=== PATIENT | male | born 1965 | race Caucasian/White ===

== ENCOUNTER 2020-02-01 23:14 | Inpatient (IN) | payer OTHER ==
[2020-02-01] MEDS ORDERED: GI Cocktail Oral Solution 30 ML PO ONE (23:21)
[2020-02-02 00:14] LABS: CHLORIDE,CL 102 mmol/L (98-107); SODIUM,NA 140 mmol/L (136-145)
[2020-02-02] MEDS ORDERED: Ondansetron 4 MG/2 ML SDV IVPUSH PRN (00:33)
[2020-02-02] MEDS ORDERED: Morphine 2 MG/ML Syringe IVPUSH PRN (00:33)
[2020-02-02] MEDS ORDERED: Famotidine 20 MG/2 ML SDV IVPUSH ONE (00:36)
[2020-02-02] MEDS ORDERED: Pantoprazole 40 MG Vial IVPUSH ONE (00:36)
[2020-02-02] MEDS ORDERED: Ondansetron 4 MG/2 ML SDV IVPUSH ONE (00:39)
[2020-02-02] MEDS ORDERED: Morphine 2 MG/ML Syringe IVPUSH ONE (00:39)
[2020-02-02] MEDS ORDERED: Calcium Carbonate 750 MG Tab.Chew PO PRN (00:40)
[2020-02-02] MEDS ORDERED: Sucralfate 1 GM Tab PO ONE (00:40)
[2020-02-02] MEDS ORDERED: HYDROmorphone 1 MG/ML Syringe IM ONE (00:43)
[2020-02-02] MEDS ORDERED: Ondansetron 4 MG Tab.DIS PO ONE (00:44)
--- NOTE | 2020-02-02 00:49 | EDM.PDOC ---
ED HPI GENERAL MEDICAL PROBLEM - General Chief Complaint: Abdominal Pain Stated Complaint: Abd Pain Time Seen by Provider: 02/01/20 23:45 Source of Information: Reports: Patient History Limitations: Reports: No Limitations - History of Present Illness INITIAL COMMENTS - FREE TEXT/NARRATIVE: Patient comes in to ER with complaint of 7-8 hours of relatively constant epigastric pain. At times feels like it radiates towards back. Burping/ antacids briefly help with pain but do not last long. Decreased appetite but did eat some food throughout day. Last meal around 6-7pm. Had similar pain two days ago that lasted around 12 hours. History of hiatal hernia. Supposed to be scheduled for surgical procedure this summer to help with the hiatal hernia and reflux symptoms. On Protonix. Previously diagnosed with Fleming's Esophagus but that cleared up on last upper GI scope. No specific trigger known for these two episodes. No history of GI surgeries. Tried to make self vomit two days ago but did not help. Denies vomiting/nausea/bowel changes. No blood in stool. Burping more frequently. No recent other changes/illnesses that he notes. HEENT negative for headache/URI complaints/dizzy/vision changes Resp negative for SOB/cough/wheeze/acute changes CV negative for palpitations/chest wall discomfort/pain in chest area other than epigastric area as noted above. negative for burning/frequency/hematuria MS/Neuro negative for limb pain/weakness/other acute changes. Upper Epigastric Pain Score (Numeric/FACES): 6 - Related Data Allergies Allergy/AdvReac Type Severity Reaction Status Date / Time No Known Allergies Allergy Verified 06/16/18 02:12 Home Meds: Home Meds Pantoprazole Sodium [Protonix] 40 mg PO DAILY 06/16/18 [History] Calcium Carb/Magnesium Hydrox [Rolaids Chewable Tablet] 4 tab PO ASDIRECTED [History] Past Medical History HEENT History: Reports: Other (See Below) Other HEENT History: snoring (working with [employer]) Cardiovascular History: Reports: None, Other (See Below) (borderline elevated BPs in past) Respiratory History: Reports: None Gastrointestinal History: Reports: GERD, Hiatal Hernia Other Gastrointestinal History: Barrets Genitourinary History: Reports: None Musculoskeletal History: Reports: None Neurological History: Reports: Other (See Below) Other Neuro History: RLS Psychiatric History: Reports: None Endocrine/Metabolic History: Reports: None Hematologic History: Reports: None Immunologic History: Reports: None Oncologic (Cancer) History: Reports: None Dermatologic History: Reports: None - Infectious Disease History Infectious Disease History: Reports: Chicken Pox Social & Family History - Tobacco Use Smoking Status *Q: Former Smoker Years of Tobacco use: 10 Packs/Tins Daily: 0.5 Used Tobacco, but Quit: Yes Month/Year Tobacco Last Used: 10/1989 - Caffeine Use Caffeine Use: Reports: Coffee - Alcohol Use Alcohol Use History: Yes Alcohol Use Frequency: Socially - Recreational Drug Use Recreational Drug Use: No ED ROS GENERAL - Review of Systems Review Of Systems: Comprehensive ROS is negative, except as noted in HPI. ED EXAM, GENERAL - Physical Exam Exam: See Below Exam Limited By: No Limitations General Appearance: Alert, WD/WN, Moderate Distress Eye Exam: Bilateral Eye: EOMI, PERRL Ears: Hearing Grossly Normal Nose: No: Nasal Deformity, Nasal Swelling, Nasal Drainage Throat/Mouth: Normal Lips, Normal Voice, No Airway Compromise Head: Atraumatic, Normocephalic Neck: Normal Inspection, Supple, Non-Tender, Full Range of Motion Respiratory/Chest: No Respiratory Distress, Lungs Clear, Normal Breath Sounds, No Accessory Muscle Use, Chest Non-Tender Cardiovascular: Regular Rate, Rhythm, No Murmur GI/Abdominal: Soft, Tender (RUQ and epigastric area), Abnormal Bowel Sounds ( decreased throughout). No: Guarding, Rigid, Rebound (Male) Exam: Deferred Rectal (Males) Exam: Deferred Back Exam: Normal Inspection. No: CVA Tenderness (L), CVA Tenderness (R), Muscle Spasm, Paraspinal Tenderness, Vertebral Tenderness Extremities: Normal Inspection, Normal Range of Motion, Non-Tender, Normal Capillary Refill Neurological: Alert, Oriented, Normal Cognition, Normal Gait, Other (equal tone/ strength bilaterally) Psychiatric: Anxious Skin Exam: Warm, Dry, Intact, Normal Color Course - Vital Signs Last Recorded V/S: Last Vital Signs Temp 36.9 C 02/01/20 23:28 Pulse 83 02/01/20 23:28 Resp 12 02/01/20 23:28 BP 145/78 H 02/01/20 23:28 Pulse Ox 100 02/01/20 23:28 - Orders/Labs/Meds Orders: Medication Orders Calcium Carbonate/Glycine (Tums Extra Strength) 750 mg PO Q2HR PRN PRN Reason: Indigestion Famotidine (Pepcid) 20 mg IVPUSH ONETIME ONE Stop: 02/02/20 00:37 Hydromorphone HCl (Dilaudid) 1 mg IM ONETIME ONE Stop: 02/02/20 00:44 Sodium Chloride (Normal Saline) 1,000 mls @ 125 mls/hr IV ASDIRECTED MILES Morphine Sulfate (Morphine) 2 mg IVPUSH Q2H PRN PRN Reason: Pain (severe 7-10) Ondansetron HCl (Zofran) 4 mg IVPUSH Q6H PRN PRN Reason: Nausea/Vomiting Ondansetron HCl (Zofran Odt) 4 mg PO ONETIME ONE Stop: 02/02/20 00:45 Pantoprazole Sodium (Protonix Iv) 80 mg IVPUSH .BOLUS ONE Stop: 02/02/20 00:37 Sodium Chloride (Saline Flush) 10 ml FLUSH ASDIRECTED PRN PRN Reason: Keep Vein Open Sucralfate (Carafate) 1 gm PO ONETIME ONE Stop: 02/02/20 00:41 Labs: Laboratory Tests 02/01/20 02/01/20 02/01/20 Range/Units 23:22 23:22 23:22 WBC 9.7 (4.0-10.2) K/uL RBC 4.92 (4.33-5.41) M/uL Hgb 14.5 (13.1-16.8) g/dL Hct 43.5 (39.0-49.0) % MCV 88.4 (84.0-98.0) fL MCH 29.5 (28.2-33.3) pg MCHC 33.3 (31.7-36.0) g/dL RDW 13.2 (11.2-14.1) % Plt Count 286 (150-350) K/uL Neut % (Auto) 63.5 (45.0-80.0) % Lymph % (Auto) 25.4 (10.0-50.0) % Mccormick % (Auto) 9.1 (2.0-14.0) % Eos % (Auto) 1.7 (0.0-5.0) % Baso % (Auto) 0.3 (0.0-2.0) % Neut # (Auto) 6.17 (1.40-7.00) K/uL Lymph # (Auto) 2.47 (0.50-3.50) K/uL Mccormick # (Auto) 0.88 (0.00-1.00) K/uL Eos # (Auto) 0.17 (0.00-0.50) K/uL Baso # (Auto) 0.03 (0.00-0.20) K/uL Sodium 140 (136-145) mmol/L Potassium 3.9 (3.5-5.1) mmol/L Chloride 102 (98-107) mmol/L Carbon Dioxide 29.7 (21.0-32.0) mmol/L BUN 11 (7-18) mg/dL Creatinine 0.92 (0.51-1.17) mg/dL Est Cr Clr Drug Dosing 88.80 mL/min Estimated GFR (MDRD) > 60 mL/min Glucose 103 (74-106) mg/dL Lactic Acid 1.1 (0.4-2.0) mmol/L Calcium 8.6 (8.5-10.1) mg/dL Total Bilirubin 0.2 (0.2-1.0) mg/dL AST 19 (15-37) U/L ALT 40 (12-78) U/L Alkaline Phosphatase 77 (46-116) IU/L Creatine Kinase (26-308) U/L Creatine Kinase Index (0.0-2.5) % CK-MB (CK-2) (0.00-3.60) ng/mL Troponin I (0.000-0.056) ng/mL Total Protein 7.8 (6.4-8.2) g/dL Albumin 3.9 (3.4-5.0) g/dL Amylase 51 (25-115) U/L Lipase 150 (73-393) U/L Specimen Type Urine Color Urine Appearance Urine pH (5.0-9.0) Ur Specific [place] (1.005-1.030) Urine Protein (NEGATIVE) mg/dL Urine Glucose (UA) (NEGATIVE) mg/dL Urine Ketones (NEGATIVE) mg/dL Urine Occult Blood (NEGATIVE) Urine Nitrite (NEGATIVE) Urine Bilirubin (NEGATIVE) Urine Urobilinogen (0.2-1.0) E.U./dL Ur Leukocyte Esterase (NEGATIVE) Urine RBC /HPF Urine WBC /HPF Ur Epithelial Cells /LPF Amorphous Sediment (0/HPF) /HPF Urine Bacteria (NONE TO FEW) /HPF 02/01/20 02/01/20 Range/Units 23:25 23:33 WBC (4.0-10.2) K/uL RBC (4.33-5.41) M/uL Hgb (13.1-16.8) g/dL Hct (39.0-49.0) % MCV (84.0-98.0) fL MCH (28.2-33.3) pg MCHC (31.7-36.0) g/dL RDW (11.2-14.1) % Plt Count (150-350) K/uL Neut % (Auto) (45.0-80.0) % Lymph % (Auto) (10.0-50.0) % Mccormick % (Auto) (2.0-14.0) % Eos % (Auto) (0.0-5.0) % Baso % (Auto) (0.0-2.0) % Neut # (Auto) (1.40-7.00) K/uL Lymph # (Auto) (0.50-3.50) K/uL M[place]ormick # (Auto) (0.00-1.00) K/uL Eos # (Auto) (0.00-0.50) K/uL Baso # (Auto) (0.00-0.20) K/uL Sodium (136-145) mmol/L Potassium (3.5-5.1) mmol/L Chloride (98-107) mmol/L Carbon Dioxide (21.0-32.0) mmol/L BUN (7-18) mg/dL Creatinine (0.51-1.17) mg/dL Est Cr Clr Drug Dosing mL/min Estimated GFR (MDRD) mL/min Glucose (74-106) mg/dL Lactic Acid (0.4-2.0) mmol/L Calcium (8.5-10.1) mg/dL Total Bilirubin (0.2-1.0) mg/dL AST (15-37) U/L ALT (12-78) U/L Alkaline Phosphatase (46-116) IU/L Creatine Kinase 61 (26-308) U/L Creatine Kinase Index 0.7 (0.0-2.5) % CK-MB (CK-2) 0.40 (0.00-3.60) ng/mL Troponin I 0.000 (0.000-0.056) ng/mL Total Protein (6.4-8.2) g/dL Albumin (3.4-5.0) g/dL Amylase (25-115) U/L Lipase (73-393) U/L Specimen Type Urinvoid Urine Color Yellow Urine Appearance Cloudy Urine pH 8.5 (5.0-9.0) Ur Specific [place] 1.020 (1.005-1.030) Urine Protein Negative (NEGATIVE) mg/dL Urine Glucose (UA) Negative (NEGATIVE) mg/dL Urine Ketones Negative (NEGATIVE) mg/dL Urine Occult Blood Negative (NEGATIVE) Urine Nitrite Negative (NEGATIVE) Urine Bilirubin Negative (NEGATIVE) Urine Urobilinogen 0.2 (0.2-1.0) E.U./dL Ur Leukocyte Esterase Negative (NEGATIVE) Urine RBC Not seen /HPF Urine WBC Not seen /HPF Ur Epithelial Cells Not seen /LPF Amorphous Sediment Many H (0/HPF) /HPF Urine Bacteria Few (NONE TO FEW) /HPF Meds: Medications Generic Name Dose Route Start Last Admin Trade Name Freq PRN Reason Stop Dose Admin Calcium Carbonate/Glycine 750 mg 02/02/20 00:40 Tums Extra Strength PO Q2HR PRN Indigestion Famotidine 20 mg 02/02/20 00:36 Pepcid IVPUSH 02/02/20 00:37 ONETIME ONE Hydromorphone HCl 1 mg 02/02/20 00:43 Dilaudid IM 02/02/20 00:44 ONETIME ONE Sodium Chloride 1,000 mls @ 125 mls/hr 02/02/20 00:45 Normal Saline IV ASDIRECTED [facility] Morphine Sulfate 2 mg 02/02/20 00:33 Morphine IVPUSH Q2H PRN Pain (severe 7-10) Ondansetron HCl 4 mg 02/02/20 00:33 Zofran IVPUSH Q6H PRN Nausea/Vomiting Ondansetron HCl 4 mg 02/02/20 00:44 Zofran Odt PO 02/02/20 00:45 ONETIME ONE Pantoprazole Sodium 80 mg 02/02/20 00:36 Protonix Iv IVPUSH 02/02/20 00:37 .BOLUS ONE Sodium Chloride 10 ml 02/02/20 00:33 Saline Flush FLUSH ASDIRECTED PRN Keep Vein Open Sucralfate 1 gm 02/02/20 00:40 Carafate PO 02/02/20 00:41 ONETIME ONE Discontinued Medications Generic Name Dose Route Start Last Admin Trade Name Adriana PRN Reason Stop Dose Admin Al Hydroxide/Mg Hydroxide 30 ml 02/01/20 23:21 02/01/20 23:27 Gi Cocktail PO 02/01/20 23:22 30 ml ONETIME ONE Administration Morphine Sulfate 4 mg 02/02/20 00:39 Morphine IVPUSH 02/02/20 00:40 ONETIME ONE Ondansetron HCl 4 mg 02/02/20 00:39 Zofran IVPUSH 02/02/20 00:40 ONETIME ONE - Re-Assessments/Exams Free Text/Narrative Re-Assessment/Exam: 02/02/20 00:56 Some improvement noted with GI cocktail but pain returned. CBC/Chem/Troponin/Amylase/Lipase/UA/lactic acid normal. Given patient's GI history/presentation/exam suspect GI cause most likely for complaint. Will admit observation and give IV fluids/pain medication/Protonix/Pepcid and get abdominal CT to try to pinpoint cause of pain. Departure - Departure Time of Disposition: 12:30 Disposition: Refer to Observation Condition: Good Clinical Impression: Epigastric pain, Hiatal hernia - Discharge Information *PRESCRIPTION DRUG MONITORING PROGRAM REVIEWED*: Not Applicable *COPY OF PRESCRIPTION DRUG MONITORING REPORT IN PATIENT SUSSY: Not Applicable Sepsis Event Note - Evaluation Sepsis Screening Result: No Definite Risk - Focused Exam Vital Signs: Vital Signs Temp Pulse Resp BP Pulse Ox 02/01/20 23:28 36.9 C 83 12 145/78 H 100 Date Exam was Performed: 02/02/20 Time Exam was Performed: 00:49 - Problem List & Annotations (1) Epigastric pain SNOMED Code(s): 03626089 Code(s): R10.13 - EPIGASTRIC PAIN Status: Acute Priority: High Current Visit: Yes Onset Date: 01/31/20 Annotation/Comment:: Differential includes hiatal hernia/ulcer/spasm. Given that discomfort extends towards RUQ cannot exclude gallbladder contribution. Will admit to observation for pain control and further workup/IV fluids. May need to consider referral to [facility] to be seen by GI if no improvement is obtained or if findings on CT indicate need for transfer. (2) Hiatal hernia SNOMED Code(s): 63199136 Code(s): K44.9 - DIAPHRAGMATIC HERNIA WITHOUT OBSTRUCTION OR GANGRENE Status: Chronic Priority: High Current Visit: Yes Annotation/Comment:: History of Hiatal Hernia with planned surgical procedure this summer to help alleviate symptoms. - Problem List Review Problem List Initiated/Reviewed/Updated: Yes - Assessment/Plan Admission H&P: Please use this note as an admission H&P Assessment:: Stable and suitable for general supervision Plan: as above
[2020-02-02] MEDS ORDERED: Iopamidol 612 MG/ML 100 ML Bottle IVPUSH ONE (01:20)
[2020-02-02] MEDS: Sodium Chloride 0.9% 1,000 ML IV SCH ×4 (01:44→23:55)
[2020-02-02 11:12] LABS: CHLORIDE,CL 105 mmol/L (98-107); SODIUM,NA 140 mmol/L (136-145)
--- NOTE | 2020-02-02 12:02 | PCM.PN ---
- General Info Date of Service: 02/02/20 Admission Dx/Problem (Free Text): Epigastric/RUQ pain Subjective Update: Pain improved with morphine. Continues to persist however with no otherwise significant changes. No appetite. Functional Status: Reports: Pain Controlled (11/20 at this time with MS), Ambulating, Urinating. Denies: New Symptoms - Review of Systems General: Reports: Appetite (low). Denies: Fever, Weakness, Fatigue, Malaise, Chills, Night Sweats HEENT: Reports: No Symptoms Pulmonary: Reports: No Symptoms Cardiovascular: Denies: Chest Pain, Palpitations, Dyspnea on Exertion, Orthopnea , Edema, Lightheadedness Gastrointestinal: Reports: Abdominal Pain, Decreased Appetite, Nausea, Other ( pain at times radiates to patient's back). Denies: Constipation, Diarrhea, Difficulty Swallowing, Flatus, Melena, Vomiting Genitourinary: Reports: No Symptoms Musculoskeletal: Reports: No Symptoms Skin: Reports: No Symptoms Neurological: Reports: No Symptoms Psychiatric: Reports: No Symptoms - Patient Data Vitals - Most Recent: Last Vital Signs Temp 36.6 C 02/02/20 06:19 Pulse 95 02/02/20 06:19 Resp 19 02/02/20 06:19 BP 128/77 02/02/20 06:19 Pulse Ox 99 02/02/20 06:19 Weight - Most Recent: 78.471 kg I&O - Last 24 Hours: Intake & Output 02/01/20 02/02/20 02/02/20 22:59 06:59 14:59 Output Total 500 Balance -500 Lab Results Last 24 Hours: Laboratory Results - last 24 hr 02/01/20 02/01/20 02/01/20 Range/Units 23:22 23:22 23:22 WBC 9.7 (4.0-10.2) K/uL RBC 4.92 (4.33-5.41) M/uL Hgb 14.5 (13.1-16.8) g/dL Hct 43.5 (39.0-49.0) % MCV 88.4 (84.0-98.0) fL MCH 29.5 (28.2-33.3) pg MCHC 33.3 (31.7-36.0) g/dL RDW 13.2 (11.2-14.1) % Plt Count 286 (150-350) K/uL Neut % (Auto) 63.5 (45.0-80.0) % Lymph % (Auto) 25.4 (10.0-50.0) % [place] % (Auto) 9.1 (2.0-14.0) % Eos % (Auto) 1.7 (0.0-5.0) % Baso % (Auto) 0.3 (0.0-2.0) % Neut # (Auto) 6.17 (1.40-7.00) K/uL Lymph # (Auto) 2.47 (0.50-3.50) K/uL [place] # (Auto) 0.88 (0.00-1.00) K/uL Eos # (Auto) 0.17 (0.00-0.50) K/uL Baso # (Auto) 0.03 (0.00-0.20) K/uL Sodium 140 (136-145) mmol/L Potassium 3.9 (3.5-5.1) mmol/L Chloride 102 (98-107) mmol/L Carbon Dioxide 29.7 (21.0-32.0) mmol/L BUN 11 (7-18) mg/dL Creatinine 0.92 (0.51-1.17) mg/dL Est Cr Clr Drug Dosing 88.80 mL/min Estimated GFR (MDRD) > 60 mL/min Glucose 103 (74-106) mg/dL Lactic Acid 1.1 (0.4-2.0) mmol/L Calcium 8.6 (8.5-10.1) mg/dL Total Bilirubin 0.2 (0.2-1.0) mg/dL AST 19 (15-37) U/L ALT 40 (12-78) U/L Alkaline Phosphatase 77 (46-116) IU/L Creatine Kinase (26-308) U/L Creatine Kinase Index (0.0-2.5) % CK-MB (CK-2) (0.00-3.60) ng/mL Troponin I (0.000-0.056) ng/mL Total Protein 7.8 (6.4-8.2) g/dL Albumin 3.9 (3.4-5.0) g/dL Amylase 51 (25-115) U/L Lipase 150 (73-393) U/L Specimen Type Urine Color Urine Appearance Urine pH (5.0-9.0) Ur Specific [place] (1.005-1.030) Urine Protein (NEGATIVE) mg/dL Urine Glucose (UA) (NEGATIVE) mg/dL Urine Ketones (NEGATIVE) mg/dL Urine Occult Blood (NEGATIVE) Urine Nitrite (NEGATIVE) Urine Bilirubin (NEGATIVE) Urine Urobilinogen (0.2-1.0) E.U./dL Ur Leukocyte Esterase (NEGATIVE) Urine RBC /HPF Urine WBC /HPF Ur Epithelial Cells /LPF Amorphous Sediment (0/HPF) /HPF Urine Bacteria (NONE TO FEW) /HPF 02/01/20 02/01/20 02/02/20 Range/Units 23:25 23:33 10:50 WBC 9.7 (4.0-10.2) K/uL RBC 4.43 (4.33-5.41) M/uL Hgb 13.1 (13.1-16.8) g/dL Hct 39.4 (39.0-49.0) % MCV 88.9 (84.0-98.0) fL MCH 29.6 (28.2-33.3) pg MCHC 33.2 (31.7-36.0) g/dL RDW 13.2 (11.2-14.1) % Plt Count 259 (150-350) K/uL Neut % (Auto) 77.4 (45.0-80.0) % Lymph % (Auto) 14.2 (10.0-50.0) % [place] % (Auto) 8.0 (2.0-14.0) % Eos % (Auto) 0.2 (0.0-5.0) % Baso % (Auto) 0.2 (0.0-2.0) % Neut # (Auto) 7.49 H (1.40-7.00) K/uL Lymph # (Auto) 1.38 (0.50-3.50) K/uL Caroline # (Auto) 0.78 (0.00-1.00) K/uL Eos # (Auto) 0.02 (0.00-0.50) K/uL Baso # (Auto) 0.02 (0.00-0.20) K/uL Sodium (136-145) mmol/L Potassium (3.5-5.1) mmol/L Chloride (98-107) mmol/L Carbon Dioxide (21.0-32.0) mmol/L BUN (7-18) mg/dL Creatinine (0.51-1.17) mg/dL Est Cr Clr Drug Dosing mL/min Estimated GFR (MDRD) mL/min Glucose (74-106) mg/dL Lactic Acid (0.4-2.0) mmol/L Calcium (8.5-10.1) mg/dL Total Bilirubin (0.2-1.0) mg/dL AST (15-37) U/L ALT (12-78) U/L Alkaline Phosphatase (46-116) IU/L Creatine Kinase 61 (26-308) U/L Creatine Kinase Index 0.7 (0.0-2.5) % CK-MB (CK-2) 0.40 (0.00-3.60) ng/mL Troponin I 0.000 (0.000-0.056) ng/mL Total Protein (6.4-8.2) g/dL Albumin (3.4-5.0) g/dL Amylase (25-115) U/L Lipase (73-393) U/L Specimen Type Urinvoid Urine Color Yellow Urine Appearance Cloudy Urine pH 8.5 (5.0-9.0) Ur Specific [place] 1.020 (1.005-1.030) Urine Protein Negative (NEGATIVE) mg/dL Urine Glucose (UA) Negative (NEGATIVE) mg/dL Urine Ketones Negative (NEGATIVE) mg/dL Urine Occult Blood Negative (NEGATIVE) Urine Nitrite Negative (NEGATIVE) Urine Bilirubin Negative (NEGATIVE) Urine Urobilinogen 0.2 (0.2-1.0) E.U./dL Ur Leukocyte Esterase Negative (NEGATIVE) Urine RBC Not seen /HPF Urine WBC Not seen /HPF Ur Epithelial Cells Not seen /LPF Amorphous Sediment Many H (0/HPF) /HPF Urine Bacteria Few (NONE TO FEW) /HPF 02/02/20 02/02/20 Range/Units 10:50 10:50 WBC (4.0-10.2) K/uL RBC (4.33-5.41) M/uL Hgb (13.1-16.8) g/dL Hct (39.0-49.0) % MCV (84.0-98.0) fL MCH (28.2-33.3) pg MCHC (31.7-36.0) g/dL RDW (11.2-14.1) % Plt Count (150-350) K/uL Neut % (Auto) (45.0-80.0) % Lymph % (Auto) (10.0-50.0) % [place] % (Auto) (2.0-14.0) % Eos % (Auto) (0.0-5.0) % Baso % (Auto) (0.0-2.0) % Neut # (Auto) (1.40-7.00) K/uL Lymph # (Auto) (0.50-3.50) K/uL [place] # (Auto) (0.00-1.00) K/uL Eos # (Auto) (0.00-0.50) K/uL Baso # (Auto) (0.00-0.20) K/uL Sodium 140 (136-145) mmol/L Potassium 4.1 (3.5-5.1) mmol/L Chloride 105 (98-107) mmol/L Carbon Dioxide 24.7 (21.0-32.0) mmol/L BUN 11 (7-18) mg/dL Creatinine 0.87 (0.51-1.17) mg/dL Est Cr Clr Drug Dosing 93.91 mL/min Estimated GFR (MDRD) > 60 mL/min Glucose 114 H (74-106) mg/dL Lactic Acid 1.5 (0.4-2.0) mmol/L Calcium 8.1 L (8.5-10.1) mg/dL Total Bilirubin 0.5 (0.2-1.0) mg/dL AST 15 (15-37) U/L ALT 33 (12-78) U/L Alkaline Phosphatase 63 (46-116) IU/L Creatine Kinase (26-308) U/L Creatine Kinase Index (0.0-2.5) % CK-MB (CK-2) (0.00-3.60) ng/mL Troponin I (0.000-0.056) ng/mL Total Protein 6.8 (6.4-8.2) g/dL Albumin 3.5 (3.4-5.0) g/dL Amylase 43 (25-115) U/L Lipase 97 (73-393) U/L Specimen Type Urine Color Urine Appearance Urine pH (5.0-9.0) Ur Specific [place] (1.005-1.030) Urine Protein (NEGATIVE) mg/dL Urine Glucose (UA) (NEGATIVE) mg/dL Urine Ketones (NEGATIVE) mg/dL Urine Occult Blood (NEGATIVE) Urine Nitrite (NEGATIVE) Urine Bilirubin (NEGATIVE) Urine Urobilinogen (0.2-1.0) E.U./dL Ur Leukocyte Esterase (NEGATIVE) Urine RBC /HPF Urine WBC /HPF Ur Epithelial Cells /LPF Amorphous Sediment (0/HPF) /HPF Urine Bacteria (NONE TO FEW) /HPF Med Orders - Current: Current Medications Calcium Carbonate/Glycine (Tums Extra Strength) 750 mg PO Q2HR PRN PRN Reason: Indigestion Sodium Chloride (Normal Saline) 1,000 mls @ 125 mls/hr IV ASDIRECTED MILES Last Admin: 02/02/20 10:00 Dose: 125 mls/hr Morphine Sulfate (Morphine) 2 mg IVPUSH Q2H PRN PRN Reason: Pain (severe 7-10) Ondansetron HCl (Zofran) 4 mg IVPUSH Q6H PRN PRN Reason: Nausea/Vomiting Last Admin: 02/02/20 06:10 Dose: 4 mg Sodium Chloride (Saline Flush) 10 ml FLUSH ASDIRECTED PRN PRN Reason: Keep Vein Open Discontinued Medications Al Hydroxide/Mg Hydroxide (Gi Cocktail) 30 ml PO ONETIME ONE Stop: 02/01/20 23:22 Last Admin: 02/01/20 23:27 Dose: 30 ml Famotidine (Pepcid) 20 mg IVPUSH ONETIME ONE Stop: 02/02/20 00:37 Last Admin: 02/02/20 01:40 Dose: 20 mg Hydromorphone HCl (Dilaudid) 1 mg IM ONETIME ONE Stop: 02/02/20 00:44 Last Admin: 02/02/20 01:04 Dose: 1 mg Iopamidol (Isovue-300 (61%)) 100 ml IVPUSH ONETIME ONE Stop: 02/02/20 01:21 Last Admin: 02/02/20 02:03 Dose: 100 ml Morphine Sulfate (Morphine) 4 mg IVPUSH ONETIME ONE Stop: 02/02/20 00:40 Last Admin: 02/02/20 02:36 Dose: Not Given Ondansetron HCl (Zofran) 4 mg IVPUSH ONETIME ONE Stop: 02/02/20 00:40 Last Admin: 02/02/20 02:37 Dose: Not Given Ondansetron HCl (Zofran Odt) 4 mg PO ONETIME ONE Stop: 02/02/20 00:45 Last Admin: 02/02/20 01:03 Dose: 4 mg Pantoprazole Sodium (Protonix Iv) 80 mg IVPUSH .BOLUS ONE Stop: 02/02/20 00:37 Last Admin: 02/02/20 01:40 Dose: 80 mg Sucralfate (Carafate) 1 gm PO ONETIME ONE Stop: 02/02/20 00:41 Last Admin: 02/02/20 01:03 Dose: 1 gm - Exam General: Alert, Oriented, Cooperative, Mild Distress HEENT: Pupils Equal, Pupils Reactive, EOMI, Mucous Membr. Moist/[place] Neck: Supple Lungs: Clear to Auscultation, Normal Respiratory Effort Cardiovascular: Regular Rate, Regular Rhythm GI/Abdominal Exam: No Distention, Guarding, Tender (epigastric and RUQ), Abnormal Bowel Sounds (diminished throughout). No: Rigid, Rebound (Male) Exam: Deferred Extremities: Normal Inspection, Normal Capillary Refill Skin: Warm, Dry Neurological: No New Focal Deficit Psy/Mental Status: Alert, Normal Affect, Normal Mood Sepsis Event Note - Evaluation Sepsis Screening Result: No Definite Risk - Focused Exam Vital Signs: Vital Signs Temp Pulse Resp BP BP Pulse Ox 02/02/20 06:19 36.6 C 95 19 128/77 99 02/02/20 00:34 99 02/02/20 00:33 37.2 C 78 14 124/72 99 Date Exam was Performed: 02/02/20 Time Exam was Performed: 11:56 - Problem List & Annotations (1) Epigastric pain SNOMED Code(s): 64918618 Code(s): R10.13 - EPIGASTRIC PAIN Status: Acute Priority: High Current Visit: Yes Onset Date: 01/31/20 Annotation/Comment:: CT of abdomen shows distended gallbladder with multiple stones. Pain has not improved overall since admission, only temporary improvement with MS. Normal LFTs. Normal WBC. Cholecystectomy discussed with patient and (Surgeon). Patient agreeable with having cholecystectomy. (2) Hiatal hernia SNOMED Code(s): 75159166 Code(s): K44.9 - DIAPHRAGMATIC HERNIA WITHOUT OBSTRUCTION OR GANGRENE Status: Chronic Priority: High Current Visit: Yes Annotation/Comment:: History of Hiatal Hernia with planned surgical procedure this summer to help alleviate symptoms. - Problem List Review Problem List Initiated/Reviewed/Updated: Yes - My Orders Last 24 Hours: My Active Orders 02/02/20 00:33 Patient Status [ADT] Routine Oxygen Therapy [RC] PRN Up ad Dian [RC] , Vital Signs [RC] Q4HR Morphine 2 mg IVPUSH Q2H PRN Ondansetron [Zofran] 4 mg IVPUSH Q6H PRN Sodium Chloride 0.9% [Saline Flush] 10 ml FLUSH ASDIRECTED PRN Saline Lock Insert [OM.PC] Routine Resuscitation Status Routine 02/02/20 00:34 Pulse Oximetry [RC] PRN 02/02/20 00:36 Abdomen Pelvis w Cont [CT] Routine 02/02/20 00:40 OCCULT BLOOD DIAGNOSTIC [OP] Routine Calcium Carbonate [Tums Extra Strength] 750 mg PO Q2HR PRN 02/02/20 00:41 H PYLORI STOOL ANTIGEN [MREF] Routine 02/02/20 00:45 Sodium Chloride 0.9% [Normal Saline] 1,000 ml IV ASDIRECTED 02/02/20 02:42 Abdomen Comp [US] Routine - Assessment Assessment:: as above - Plan Plan:: Hospital working with patient's insurance to get authorization for cholecystectomy. Once approved, procedure will be able to be performed at our facility. Anticipate discharge of patient home either later this evening or tomorrow depending on clinical course/recovery from procedure.
[2020-02-02] MEDS ORDERED: Meperidine PF 25 MG/ML SDV IVPUSH ONE (12:09)
[2020-02-02] MEDS ORDERED: Lactated Ringers 1,000 ML IV SCH (12:15)
[2020-02-02] MEDS ORDERED: Scopolamine 1.5 MG Transdermal Patch TRDERM ONE (12:43)
[2020-02-02] MEDS ORDERED: Scopolamine 1.5 MG Transdermal Patch ONE (12:43)
[2020-02-02] MEDS ORDERED: Midazolam 1 MG/ML 2 ML SDV ONE (12:49)
[2020-02-02] MEDS ORDERED: fentaNYL 250 MCG/5 ML SDV ONE (12:49)
[2020-02-02] MEDS ORDERED: Propofol 200 MG/20 ML SDV ONE (12:49)
--- NOTE | 2020-02-02 13:32 | PCM.PN ---
- General Info Date of Service: 02/02/20 - Review of Systems Systems Review Comment:: 54-year-old male admitted to the hospital last night for upper abdominal pain. He had been experiencing several episodes of this over the last few days. Patient was evaluated with CT scan which documented cholelithiasis with dilated gallbladder. Patient continues to have upper abdominal pain and tenderness. I have recommended urgent cholecystectomy with the patient's continued symptoms. Liver function tests are normal. Abdominal exam shows his abdomen is soft but there is tenderness to palpation in the upper abdomen. I do not feel any abdominal masses. His only previous abdominal surgery was appendectomy. His medical history is reviewed and no contraindications to proceeding with surgery today are identified. I have discussed the proposed cholecystectomy with the patient. We have carefully reviewed the indications options for treatment. I discussed the expected course and postop instructions. I also carefully reviewed with him risks such as but not limited to bleeding,infection, and organ injury. We also discussed possible need to convert to a laparotomy. Patient's questions are answered. He agrees to proceed. - Patient Data Vitals - Most Recent: Last Vital Signs Temp 97.9 F 02/02/20 06:19 Pulse 95 02/02/20 06:19 Resp 19 02/02/20 06:19 BP 128/77 02/02/20 06:19 Pulse Ox 99 02/02/20 06:19 Weight - Most Recent: 78.471 kg I&O - Last 24 Hours: Intake & Output 02/01/20 02/02/20 02/02/20 22:59 06:59 14:59 Output Total 500 Balance -500 Lab Results Last 24 Hours: Laboratory Results - last 24 hr 02/01/20 02/01/20 02/01/20 Range/Units 23:22 23:22 23:22 WBC 9.7 (4.0-10.2) K/uL RBC 4.92 (4.33-5.41) M/uL Hgb 14.5 (13.1-16.8) g/dL Hct 43.5 (39.0-49.0) % MCV 88.4 (84.0-98.0) fL MCH 29.5 (28.2-33.3) pg MCHC 33.3 (31.7-36.0) g/dL RDW 13.2 (11.2-14.1) % Plt Count 286 (150-350) K/uL Neut % (Auto) 63.5 (45.0-80.0) % Lymph % (Auto) 25.4 (10.0-50.0) % Craven % (Auto) 9.1 (2.0-14.0) % Eos % (Auto) 1.7 (0.0-5.0) % Baso % (Auto) 0.3 (0.0-2.0) % Neut # (Auto) 6.17 (1.40-7.00) K/uL Lymph # (Auto) 2.47 (0.50-3.50) K/uL Craven # (Auto) 0.88 (0.00-1.00) K/uL Eos # (Auto) 0.17 (0.00-0.50) K/uL Baso # (Auto) 0.03 (0.00-0.20) K/uL Sodium 140 (136-145) mmol/L Potassium 3.9 (3.5-5.1) mmol/L Chloride 102 (98-107) mmol/L Carbon Dioxide 29.7 (21.0-32.0) mmol/L BUN 11 (7-18) mg/dL Creatinine 0.92 (0.51-1.17) mg/dL Est Cr Clr Drug Dosing 88.80 mL/min Estimated GFR (MDRD) > 60 mL/min Glucose 103 (74-106) mg/dL Lactic Acid 1.1 (0.4-2.0) mmol/L Calcium 8.6 (8.5-10.1) mg/dL Total Bilirubin 0.2 (0.2-1.0) mg/dL AST 19 (15-37) U/L ALT 40 (12-78) U/L Alkaline Phosphatase 77 (46-116) IU/L Creatine Kinase (26-308) U/L Creatine Kinase Index (0.0-2.5) % CK-MB (CK-2) (0.00-3.60) ng/mL Troponin I (0.000-0.056) ng/mL Total Protein 7.8 (6.4-8.2) g/dL Albumin 3.9 (3.4-5.0) g/dL Amylase 51 (25-115) U/L Lipase 150 (73-393) U/L Specimen Type Urine Color Urine Appearance Urine pH (5.0-9.0) Ur Specific [place] (1.005-1.030) Urine Protein (NEGATIVE) mg/dL Urine Glucose (UA) (NEGATIVE) mg/dL Urine Ketones (NEGATIVE) mg/dL Urine Occult Blood (NEGATIVE) Urine Nitrite (NEGATIVE) Urine Bilirubin (NEGATIVE) Urine Urobilinogen (0.2-1.0) E.U./dL Ur Leukocyte Esterase (NEGATIVE) Urine RBC /HPF Urine WBC /HPF Ur Epithelial Cells /LPF Amorphous Sediment (0/HPF) /HPF Urine Bacteria (NONE TO FEW) /HPF 02/01/20 02/01/20 02/02/20 Range/Units 23:25 23:33 10:50 WBC 9.7 (4.0-10.2) K/uL RBC 4.43 (4.33-5.41) M/uL Hgb 13.1 (13.1-16.8) g/dL Hct 39.4 (39.0-49.0) % MCV 88.9 (84.0-98.0) fL MCH 29.6 (28.2-33.3) pg MCHC 33.2 (31.7-36.0) g/dL RDW 13.2 (11.2-14.1) % Plt Count 259 (150-350) K/uL Neut % (Auto) 77.4 (45.0-80.0) % Lymph % (Auto) 14.2 (10.0-50.0) % Craven % (Auto) 8.0 (2.0-14.0) % Eos % (Auto) 0.2 (0.0-5.0) % Baso % (Auto) 0.2 (0.0-2.0) % Neut # (Auto) 7.49 H (1.40-7.00) K/uL Lymph # (Auto) 1.38 (0.50-3.50) K/uL Craven # (Auto) 0.78 (0.00-1.00) K/uL Eos # (Auto) 0.02 (0.00-0.50) K/uL Baso # (Auto) 0.02 (0.00-0.20) K/uL Sodium (136-145) mmol/L Potassium (3.5-5.1) mmol/L Chloride (98-107) mmol/L Carbon Dioxide (21.0-32.0) mmol/L BUN (7-18) mg/dL Creatinine (0.51-1.17) mg/dL Est Cr Clr Drug Dosing mL/min Estimated GFR (MDRD) mL/min Glucose (74-106) mg/dL Lactic Acid (0.4-2.0) mmol/L Calcium (8.5-10.1) mg/dL Total Bilirubin (0.2-1.0) mg/dL AST (15-37) U/L ALT (12-78) U/L Alkaline Phosphatase (46-116) IU/L Creatine Kinase 61 (26-308) U/L Creatine Kinase Index 0.7 (0.0-2.5) % CK-MB (CK-2) 0.40 (0.00-3.60) ng/mL Troponin I 0.000 (0.000-0.056) ng/mL Total Protein (6.4-8.2) g/dL Albumin (3.4-5.0) g/dL Amylase (25-115) U/L Lipase (73-393) U/L Specimen Type Urinvoid Urine Color Yellow Urine Appearance Cloudy Urine pH 8.5 (5.0-9.0) Ur Specific [place] 1.020 (1.005-1.030) Urine Protein Negative (NEGATIVE) mg/dL Urine Glucose (UA) Negative (NEGATIVE) mg/dL Urine Ketones Negative (NEGATIVE) mg/dL Urine Occult Blood Negative (NEGATIVE) Urine Nitrite Negative (NEGATIVE) Urine Bilirubin Negative (NEGATIVE) Urine Urobilinogen 0.2 (0.2-1.0) E.U./dL Ur Leukocyte Esterase Negative (NEGATIVE) Urine RBC Not seen /HPF Urine WBC Not seen /HPF Ur Epithelial Cells Not seen /LPF Amorphous Sediment Many H (0/HPF) /HPF Urine Bacteria Few (NONE TO FEW) /HPF 02/02/20 02/02/20 Range/Units 10:50 10:50 WBC (4.0-10.2) K/uL RBC (4.33-5.41) M/uL Hgb (13.1-16.8) g/dL Hct (39.0-49.0) % MCV (84.0-98.0) fL MCH (28.2-33.3) pg MCHC (31.7-36.0) g/dL RDW (11.2-14.1) % Plt Count (150-350) K/uL Neut % (Auto) (45.0-80.0) % Lymph % (Auto) (10.0-50.0) % [place]ven % (Auto) (2.0-14.0) % Eos % (Auto) (0.0-5.0) % Baso % (Auto) (0.0-2.0) % Neut # (Auto) (1.40-7.00) K/uL Lymph # (Auto) (0.50-3.50) K/uL [place] # (Auto) (0.00-1.00) K/uL Eos # (Auto) (0.00-0.50) K/uL Baso # (Auto) (0.00-0.20) K/uL Sodium 140 (136-145) mmol/L Potassium 4.1 (3.5-5.1) mmol/L Chloride 105 (98-107) mmol/L Carbon Dioxide 24.7 (21.0-32.0) mmol/L BUN 11 (7-18) mg/dL Creatinine 0.87 (0.51-1.17) mg/dL Est Cr Clr Drug Dosing 93.91 mL/min Estimated GFR (MDRD) > 60 mL/min Glucose 114 H (74-106) mg/dL Lactic Acid 1.5 (0.4-2.0) mmol/L Calcium 8.1 L (8.5-10.1) mg/dL Total Bilirubin 0.5 (0.2-1.0) mg/dL AST 15 (15-37) U/L ALT 33 (12-78) U/L Alkaline Phosphatase 63 (46-116) IU/L Creatine Kinase (26-308) U/L Creatine Kinase Index (0.0-2.5) % CK-MB (CK-2) (0.00-3.60) ng/mL Troponin I (0.000-0.056) ng/mL Total Protein 6.8 (6.4-8.2) g/dL Albumin 3.5 (3.4-5.0) g/dL Amylase 43 (25-115) U/L Lipase 97 (73-393) U/L Specimen Type Urine Color Urine Appearance Urine pH (5.0-9.0) Ur Specific [place] (1.005-1.030) Urine Protein (NEGATIVE) mg/dL Urine Glucose (UA) (NEGATIVE) mg/dL Urine Ketones (NEGATIVE) mg/dL Urine Occult Blood (NEGATIVE) Urine Nitrite (NEGATIVE) Urine Bilirubin (NEGATIVE) Urine Urobilinogen (0.2-1.0) E.U./dL Ur Leukocyte Esterase (NEGATIVE) Urine RBC /HPF Urine WBC /HPF Ur Epithelial Cells /LPF Amorphous Sediment (0/HPF) /HPF Urine Bacteria (NONE TO FEW) /HPF Med Orders - Current: Current Medications Calcium Carbonate/Glycine (Tums Extra Strength) 750 mg PO Q2HR PRN PRN Reason: Indigestion Sodium Chloride (Normal Saline) 1,000 mls @ 125 mls/hr IV ASDIRECTED [facility] Last Admin: 02/02/20 10:00 Dose: 125 mls/hr Lactated Ringer's (Ringers, Lactated) 1,000 mls @ 75 mls/hr IV ASDIRECTED [facility] Last Admin: 02/02/20 12:35 Dose: 75 mls/hr Morphine Sulfate (Morphine) 2 mg IVPUSH Q2H PRN PRN Reason: Pain (severe 7-10) Ondansetron HCl (Zofran) 4 mg IVPUSH Q6H PRN PRN Reason: Nausea/Vomiting Last Admin: 02/02/20 06:10 Dose: 4 mg Sodium Chloride (Saline Flush) 10 ml FLUSH ASDIRECTED PRN PRN Reason: Keep Vein Open Discontinued Medications Al Hydroxide/Mg Hydroxide (Gi Cocktail) 30 ml PO ONETIME ONE Stop: 02/01/20 23:22 Last Admin: 02/01/20 23:27 Dose: 30 ml Famotidine (Pepcid) 20 mg IVPUSH ONETIME ONE Stop: 02/02/20 00:37 Last Admin: 02/02/20 01:40 Dose: 20 mg Fentanyl (Sublimaze) Confirm Administered Dose 250 mcg .ROUTE .STK-MED ONE Stop: 02/02/20 12:50 Hydromorphone HCl (Dilaudid) 1 mg IM ONETIME ONE Stop: 02/02/20 00:44 Last Admin: 02/02/20 01:04 Dose: 1 mg Iopamidol (Isovue-300 (61%)) 100 ml IVPUSH ONETIME ONE Stop: 02/02/20 01:21 Last Admin: 02/02/20 02:03 Dose: 100 ml Meperidine HCl (Demerol) 25 mg IVPUSH ONETIME ONE Stop: 02/02/20 12:10 Last Admin: 02/02/20 12:35 Dose: 25 mg Midazolam HCl (Versed 1 Mg/Ml) Confirm Administered Dose 2 mg .ROUTE .STK-MED ONE Stop: 02/02/20 12:50 Morphine Sulfate (Morphine) 4 mg IVPUSH ONETIME ONE Stop: 02/02/20 00:40 Last Admin: 02/02/20 02:36 Dose: Not Given Ondansetron HCl (Zofran) 4 mg IVPUSH ONETIME ONE Stop: 02/02/20 00:40 Last Admin: 02/02/20 02:37 Dose: Not Given Ondansetron HCl (Zofran Odt) 4 mg PO ONETIME ONE Stop: 02/02/20 00:45 Last Admin: 02/02/20 01:03 Dose: 4 mg Pantoprazole Sodium (Protonix Iv) 80 mg IVPUSH .BOLUS ONE Stop: 02/02/20 00:37 Last Admin: 02/02/20 01:40 Dose: 80 mg Propofol (Diprivan 20 Ml) Confirm Administered Dose 200 mg .ROUTE .STK-MED ONE Stop: 02/02/20 12:50 Scopolamine (Transderm-Scop) 1.5 mg TRDERM Q72H ONE Stop: 02/02/20 12:44 Last Admin: 02/02/20 12:55 Dose: 1.5 mg Scopolamine (Transderm-Scop) Confirm Administered Dose 1.5 mg .ROUTE .STK-MED ONE Stop: 02/02/20 12:44 Sucralfate (Carafate) 1 gm PO ONETIME ONE Stop: 02/02/20 00:41 Last Admin: 02/02/20 01:03 Dose: 1 gm Sepsis Event Note - Evaluation Sepsis Screening Result: No Definite Risk - Focused Exam Vital Signs: Vital Signs Temp Pulse Resp BP Pulse Ox 02/02/20 06:19 97.9 F 95 19 128/77 99 Date Exam was Performed: 02/02/20 Time Exam was Performed: 13:28 - Problem List Review Problem List Initiated/Reviewed/Updated: Yes - Assessment Assessment:: cholelithiasis with acute cholecystitis - Plan Plan:: laparoscopic cholecystectomy
[2020-02-02] MEDS ORDERED: ceFAZolin 1 GM Vial IV ONE (13:40)
[2020-02-02] MEDS ORDERED: Bupivacaine 0.25%/EPINEPHrine 1:200,000 30 ML SDV INJECT ONE (13:50)
[2020-02-02] MEDS ORDERED: fentaNYL 100 MCG/2 ML SDV ONE (16:15)
[2020-02-02] MEDS ORDERED: Bacitracin Oint 1 GM U/D Packet TOP ONE (16:20)
--- NOTE | 2020-02-02 16:37 | PCM.OPNOTE ---
- General Post-Op/Procedure Note Date of Surgery/Procedure: 02/02/20 Operative Procedure(s): Laparoscopic Cholecystectomy Findings: Acutely inflamed gallbladder with multiple stones and Hydrops Pre Op Diagnosis: Acute Cholecystitis with cholelithiasis Post-Op Diagnosis: Same Anesthesia Technique: General ET Tube Primary Surgeon: Mustapha Joyce Pathology: Gallbladder with stones EBL in mLs: 150 Complications: None Condition: Good Free Text/Narrative:: Intake & Output 02/02/20 02/02/20 02/02/20 06:59 14:59 22:59 Output Total 900 Balance -900
[2020-02-02] MEDS ORDERED: Ketorolac 30 MG/ML SDV IVPUSH ONE (17:27)
[2020-02-02] MEDS: Sodium Chloride 0.9% 10 ML Syringe FLUSH PRN (17:41)
[2020-02-02] MEDS: Piperacillin/Tazobactam 3.375 GM in Sodium Chloride 0.9% 100 ML IV SCH ×2 (19:20→23:53)
--- NOTE | 2020-02-02 23:06 | OR ---
Date of Procedure: 02/02/2020 PREOPERATIVE DIAGNOSIS: Acute cholecystitis with cholelithiasis. POSTOPERATIVE DIAGNOSIS: Acute cholecystitis with cholelithiasis. OPERATION PERFORMED: Laparoscopic cholecystectomy. INDICATIONS FOR SURGERY: This 54-year-old male was hospitalized with upper abdominal pain. He had several episodes over the past several days and came in with a severe unrelenting episode. Workup has identified cholelithiasis with a dilated gallbladder which is felt to be the source of his pain, and he comes for cholecystectomy. FINDINGS: The gallbladder was severely acutely inflamed with dense adherence of the gallbladder to the gallbladder bed, especially in its lower aspect. It contained multiple large and small stones. The adjacent liver and other organs as viewed laparoscopically appeared normal. DESCRIPTION OF PROCEDURE: The patient was taken to the operating room. He was given general endotracheal anesthesia and the abdomen was sterilely prepped and draped. An infraumbilical stab wound incision was made. Through this, a Veress needle was inserted and pneumoperitoneum via this needle to a pressure of 15 mmHg was achieved with carbon dioxide. The Veress needle was replaced with a 12 mm trocar into which the 0-degree 10 mm laparoscopic camera was inserted. Under direct visualization, 5 mm trocars were placed in the subxiphoid midline in 2 areas of the right abdomen. All trocar sites were infiltrated with Marcaine prior to incision. Intraabdominal inspection was carried out and attention was turned to the gallbladder. The gallbladder was markedly dilated and tense, so an aspirating needle was inserted and the hydrops of bile aspirated from the gallbladder which decompressed it and then allowed it to be manipulated. It was secured with grasping forceps and retracted superiorly and anteriorly as much as possible. This was difficult because of the intense inflammation and scarring, especially in the lower aspect of the gallbladder. Careful dissection was carried out, gradually clearing the peritoneum and thick inflamed tissue, and with persistent careful manipulation, the cystic artery was able to be identified and isolated and it was then clipped and divided. The additional dissection identified what was felt to be the cystic duct. Dissection was somewhat difficult around the lower portion of the gallbladder, and eventually the lower portion of the gallbladder was entered exposing the large stone. This did help to identify the anatomy, and with careful additional persistent dissection, the cystic duct identity was able to be confirmed including its junction with the gallbladder. It was then doubly clipped and divided near the gallbladder. Additional dissection identified another branch of the cystic artery which was doubly clipped and divided, and the gallbladder was then slowly and carefully dissected away from the undersurface of the gallbladder using the hook cautery device. During this dissection, a large stone escaped from the lumen of the gallbladder. This stone was removed during the course of the operation. It had to be fragmented in order to accomplish this. The formed stone fragments were also removed leaving minimal stone fragments intra- abdominally. Dissection of the gallbladder was continued until it was completely freed from the liver bed. It was then placed into an Endo retrieval bag and it was extracted through the umbilical trocar site. Because of the thick gallbladder and multiple large and small stones, the skin and fascial opening had to be extended just slightly and the gallbladder and stones broken up, but eventually it was able to be removed without any stone spillage. Re- inspection of the gallbladder bed was carried out and copious irrigation of the operative region was performed. Careful examination showed no sign of complication. A piece of Surgicel was placed in the lower aspect of the gallbladder bed to assure good hemostasis, and the trocars were removed under direct visualization and the pneumoperitoneum was evacuated. The fascia of the umbilical trocar site was closed with interrupted 0 Vicryl sutures. The wounds were carefully irrigated with Betadine and saline solution. Skin incision was approximated with interrupted 4-0 Vicryl in subcuticular stitch. Benzoin and Steri-Strips were applied followed by antibiotic ointment and sterile dressings. The patient was then awakened, extubated, and taken from the operating room in satisfactory condition. ESTIMATED BLOOD LOSS: 150 mL. COMPLICATIONS: None. PROGNOSIS: Good. QUINTIN Joyce MD /[id number]
[2020-02-03] MEDS: Piperacillin/Tazobactam 3.375 GM in Sodium Chloride 0.9% 100 ML IV SCH (05:04)
[2020-02-03 08:27] LABS: CHLORIDE,CL 107 mmol/L (98-107); SODIUM,NA 140 mmol/L (136-145)
[2020-02-03] MEDS: cefTRIAXone 1 GM in Sodium Chloride 0.9% 100 ML IV SCH ×2 (10:46→22:05)
[2020-02-03] MEDS: Sodium Chloride 0.9% 10 ML Syringe FLUSH PRN ×3 (10:46→11:30)
--- NOTE | 2020-02-03 11:03 | PCM.PN ---
- General Info Date of Service: 02/03/20 Admission Dx/Problem (Free Text): Cholecystitis Functional Status: Reports: Pain Controlled, Tolerating Diet, Ambulating, Urinating, Incentive Spirometry. Denies: New Symptoms Pain Score: 2 - Review of Systems General: Reports: Fever. Denies: Weakness, Fatigue, Malaise, Chills, Night Sweats, Appetite (Improving) HEENT: Denies: Dysphasia, Ear Pain, Eye Pain, Headaches, Post Nasal Drip, Sinus Congestion, Sore Throat, Rhinitis, Visual Changes Pulmonary: Reports: Pleuritic Chest Pain. Denies: Shortness of Breath, Cough, Sputum, Hemoptysis, Wheezing Cardiovascular: Reports: Lightheadedness. Denies: Chest Pain, Palpitations, Dyspnea on Exertion, Orthopnea, Edema Gastrointestinal: Reports: Abdominal Pain, Constipation, Other (No bowel movement since surgery). Denies: Decreased Appetite, Diarrhea, Difficulty Swallowing, Flatus, Hematochezia, Melena, Nausea, Vomiting Genitourinary: Reports: No Symptoms. Denies: Dysuria, Frequency, Burning, Pain , Urgency, Incontinence, Hematuria, Retention, Flank Pain Musculoskeletal: Reports: No Symptoms. Denies: Neck Pain, Shoulder Pain, Arm Pain, Back Pain, Leg Pain Skin: Reports: Bruising (Normal postop). Denies: Jaundice, Pallor, Diaphoresis , Rash Neurological: Reports: Dizziness. Denies: Confusion, Headache, Numbness, Paresthesia, Seizure, Tingling, Weakness Psychiatric: Reports: No Symptoms. Denies: Confusion, Depression, Anxiety, Agitation, Cravings, Hallucinations - Patient Data Vitals - Most Recent: Last Vital Signs Temp 36.8 C 02/03/20 08:00 Pulse 79 02/03/20 08:00 Resp 20 02/03/20 08:00 BP 99/56 L 02/03/20 08:00 Pulse Ox 96 02/03/20 08:00 Vital Signs - 24 hr 02/02/20 02/02/20 02/02/20 13:20 16:45 16:50 Temperature [ Oral] Temperature [ 36.7 C 37.3 C Temporal] Pulse, 78 94 Peripheral [ Left Pulse Oximetry] Pulse, Peripheral [ Right Pulse Oximetry] Respiratory 19 18 Rate Blood Pressure 128/77 [Left Upper Arm ] Blood Pressure 124/72 86/48 L [Right Upper Arm] O2 Sat by Pulse 99 94 L Oximetry O2 Sat by Pulse 92 L Oximetry [Room Air] 02/02/20 02/02/20 02/02/20 17:04 17:06 17:07 Temperature [ Oral] Temperature [ 37.4 C 37.4 C Temporal] Pulse, 79 75 Peripheral [ Left Pulse Oximetry] Pulse, Peripheral [ Right Pulse Oximetry] Respiratory 18 20 Rate Blood Pressure [Left Upper Arm ] Blood Pressure 100/55 L 104/69 [Right Upper Arm] O2 Sat by Pulse 91 L 91 L Oximetry O2 Sat by Pulse Oximetry [Room Air] 02/02/20 02/02/20 02/02/20 17:20 17:46 18:12 Temperature [ Oral] Temperature [ 37.0 C 37.4 C Temporal] Pulse, 81 81 Peripheral [ Left Pulse Oximetry] Pulse, Peripheral [ Right Pulse Oximetry] Respiratory 20 18 Rate Blood Pressure 102/51 L [Left Upper Arm ] Blood Pressure 96/54 L [Right Upper Arm] O2 Sat by Pulse 100 97 Oximetry O2 Sat by Pulse 95 Oximetry [Room Air] 02/02/20 02/02/20 02/02/20 18:45 19:49 23:56 Temperature [ 37.3 C Oral] Temperature [ 37.3 C 36.8 C Temporal] Pulse, 84 Peripheral [ Left Pulse Oximetry] Pulse, 78 74 Peripheral [ Right Pulse Oximetry] Respiratory 14 18 16 Rate Blood Pressure 101/55 L 91/55 L [Left Upper Arm ] Blood Pressure 91/43 L [Right Upper Arm] O2 Sat by Pulse 95 97 95 Oximetry O2 Sat by Pulse Oximetry [Room Air] 02/03/20 02/03/20 03:27 08:00 Temperature [ 37.6 C 36.8 C Oral] Temperature [ Temporal] Pulse, 81 Peripheral [ Left Pulse Oximetry] Pulse, 79 Peripheral [ Right Pulse Oximetry] Respiratory 16 20 Rate Blood Pressure 103/49 L 99/56 L [Left Upper Arm ] Blood Pressure [Right Upper Arm] O2 Sat by Pulse 95 96 Oximetry O2 Sat by Pulse Oximetry [Room Air] Weight - Most Recent: 78.471 kg I&O - Last 24 Hours: Intake & Output 02/02/20 02/03/20 02/03/20 22:59 06:59 14:59 Intake Total 1750 1834 360 Output Total 250 350 Balance 1500 1484 360 Imaging Impressions - Last 24 Hours: Intraoperative tester operator showed normal sinus rhythm in the 80s to 100s with no ectopy or arrhythmia. Lab Results Last 24 Hours: Laboratory Results - last 24 hr 02/02/20 02/02/20 02/02/20 Range/Units 10:50 10:50 10:50 WBC 9.7 (4.0-10.2) K/uL RBC 4.43 (4.33-5.41) M/uL Hgb 13.1 (13.1-16.8) g/dL Hct 39.4 (39.0-49.0) % MCV 88.9 (84.0-98.0) fL MCH 29.6 (28.2-33.3) pg MCHC 33.2 (31.7-36.0) g/dL RDW 13.2 (11.2-14.1) % Plt Count 259 (150-350) K/uL Neut % (Auto) 77.4 (45.0-80.0) % Lymph % (Auto) 14.2 (10.0-50.0) % [place] % (Auto) 8.0 (2.0-14.0) % Eos % (Auto) 0.2 (0.0-5.0) % Baso % (Auto) 0.2 (0.0-2.0) % Neut # (Auto) 7.49 H (1.40-7.00) K/uL Lymph # (Auto) 1.38 (0.50-3.50) K/uL [place] # (Auto) 0.78 (0.00-1.00) K/uL Eos # (Auto) 0.02 (0.00-0.50) K/uL Baso # (Auto) 0.02 (0.00-0.20) K/uL Sodium 140 (136-145) mmol/L Potassium 4.1 (3.5-5.1) mmol/L Chloride 105 (98-107) mmol/L Carbon Dioxide 24.7 (21.0-32.0) mmol/L BUN 11 (7-18) mg/dL Creatinine 0.87 (0.51-1.17) mg/dL Est Cr Clr Drug Dosing 93.91 mL/min Estimated GFR (MDRD) > 60 mL/min Glucose 114 H (74-106) mg/dL Lactic Acid 1.5 (0.4-2.0) mmol/L Calcium 8.1 L (8.5-10.1) mg/dL Total Bilirubin 0.5 (0.2-1.0) mg/dL AST 15 (15-37) U/L ALT 33 (12-78) U/L Alkaline Phosphatase 63 (46-116) IU/L Total Protein 6.8 (6.4-8.2) g/dL Albumin 3.5 (3.4-5.0) g/dL Amylase 43 (25-115) U/L Lipase 97 (73-393) U/L 02/03/20 02/03/20 Range/Units 07:35 07:35 WBC 10.4 H (4.0-10.2) K/uL RBC 4.04 L (4.33-5.41) M/uL Hgb 12.0 L (13.1-16.8) g/dL Hct 36.6 L (39.0-49.0) % MCV 90.6 (84.0-98.0) fL MCH 29.7 (28.2-33.3) pg MCHC 32.8 (31.7-36.0) g/dL RDW 13.6 (11.2-14.1) % Plt Count 238 (150-350) K/uL Neut % (Auto) 74.7 (45.0-80.0) % Lymph % (Auto) 15.4 (10.0-50.0) % [place] % (Auto) 9.8 (2.0-14.0) % Eos % (Auto) 0.0 (0.0-5.0) % Baso % (Auto) 0.1 (0.0-2.0) % Neut # (Auto) 7.79 H (1.40-7.00) K/uL Lymph # (Auto) 1.60 (0.50-3.50) K/uL [place] # (Auto) 1.02 H (0.00-1.00) K/uL Eos # (Auto) 0.00 (0.00-0.50) K/uL Baso # (Auto) 0.01 (0.00-0.20) K/uL Sodium 140 (136-145) mmol/L Potassium 3.8 (3.5-5.1) mmol/L Chloride 107 (98-107) mmol/L Carbon Dioxide 25.7 (21.0-32.0) mmol/L BUN 12 (7-18) mg/dL Creatinine 1.07 (0.51-1.17) mg/dL Est Cr Clr Drug Dosing 76.36 mL/min Estimated GFR (MDRD) > 60 mL/min Glucose 104 (74-106) mg/dL Lactic Acid (0.4-2.0) mmol/L Calcium 7.3 L (8.5-10.1) mg/dL Total Bilirubin 0.8 (0.2-1.0) mg/dL AST 30 (15-37) U/L ALT 44 (12-78) U/L Alkaline Phosphatase 47 (46-116) IU/L Total Protein 6.0 L (6.4-8.2) g/dL Albumin 3.0 L (3.4-5.0) g/dL Amylase (25-115) U/L Lipase (73-393) U/L Mani Results Last 24 Hours: None Med Orders - Current: Current Medications Acetaminophen (Tylenol) 650 mg PO Q4H PRN PRN Reason: Pain (Mild 1-3)/fever Calcium Carbonate/Glycine (Tums Extra Strength) 750 mg PO Q2HR PRN PRN Reason: Indigestion Sodium Chloride (Normal Saline) 1,000 mls @ 125 mls/hr IV ASDIRECTED [facility] Last Admin: 02/02/20 23:55 Dose: 125 mls/hr Ceftriaxone Sodium 1 gm/ (Sodium Chloride) 100 mls @ 200 mls/hr IV Q12H [facility] Last Admin: 02/03/20 10:46 Dose: 200 mls/hr Metronidazole 500 mg/ Premix 100 mls @ 100 mls/hr IV Q8H [facility] Morphine Sulfate (Morphine) 2 mg IVPUSH Q2H PRN PRN Reason: Pain (severe 7-10) Ondansetron HCl (Zofran) 4 mg IVPUSH Q6H PRN PRN Reason: Nausea/Vomiting Last Admin: 02/02/20 06:10 Dose: 4 mg Sodium Chloride (Saline Flush) 10 ml FLUSH ASDIRECTED PRN PRN Reason: Keep Vein Open Last Admin: 02/03/20 10:52 Dose: 10 ml Tramadol HCl (Ultram) 50 mg PO Q6H PRN PRN Reason: Pain (moderate 4-6) Discontinued Medications Al Hydroxide/Mg Hydroxide (Gi Cocktail) 30 ml PO ONETIME ONE Stop: 02/01/20 23:22 Last Admin: 02/01/20 23:27 Dose: 30 ml Bupivacaine HCl/Epinephrine Bitart (Marcaine 0.25%/Epinephrine 1:200,000) 30 ml INJECT .STK-MED ONE Stop: 02/02/20 13:51 Last Admin: 02/02/20 13:50 Dose: 30 ml Cefazolin Sodium (Ancef) 2 gm IV .STK-MED ONE Stop: 02/02/20 13:41 Last Admin: 02/02/20 13:40 Dose: 2 gm Famotidine (Pepcid) 20 mg IVPUSH ONETIME ONE Stop: 02/02/20 00:37 Last Admin: 02/02/20 01:40 Dose: 20 mg Fentanyl (Sublimaze) Confirm Administered Dose 250 mcg .ROUTE .STK-MED ONE Stop: 02/02/20 12:50 Last Admin: 02/02/20 18:56 Dose: Not Given Fentanyl (Sublimaze) Confirm Administered Dose 100 mcg .ROUTE .STK-MED ONE Stop: 02/02/20 16:16 Last Admin: 02/02/20 18:56 Dose: Not Given Hydromorphone HCl (Dilaudid) 1 mg IM ONETIME ONE Stop: 02/02/20 00:44 Last Admin: 02/02/20 01:04 Dose: 1 mg Lactated Ringer's (Ringers, Lactated) 1,000 mls @ 75 mls/hr IV ASDIRECTED [facility] Last Admin: 02/02/20 12:35 Dose: 75 mls/hr Piperacillin Sod/Tazobactam (Sod 3.375 gm/ Sodium Chloride) 100 mls @ 200 mls/ hr IV Q6H [facility] Stop: 02/03/20 05:29 Last Admin: 02/03/20 05:04 Dose: 200 mls/hr Iopamidol (Isovue-300 (61%)) 100 ml IVPUSH ONETIME ONE Stop: 02/02/20 01:21 Last Admin: 02/02/20 02:03 Dose: 100 ml Ketorolac Tromethamine (Toradol) 30 mg IVPUSH ONETIME ONE Stop: 02/02/20 17:28 Last Admin: 02/02/20 17:35 Dose: 30 mg Meperidine HCl (Demerol) 25 mg IVPUSH ONETIME ONE Stop: 02/02/20 12:10 Last Admin: 02/02/20 12:35 Dose: 25 mg Midazolam HCl (Versed 1 Mg/Ml) Confirm Administered Dose 2 mg .ROUTE .STK-MED ONE Stop: 02/02/20 12:50 Last Admin: 02/02/20 18:56 Dose: Not Given Morphine Sulfate (Morphine) 4 mg IVPUSH ONETIME ONE Stop: 02/02/20 00:40 Last Admin: 02/02/20 02:36 Dose: Not Given Ondansetron HCl (Zofran) 4 mg IVPUSH ONETIME ONE Stop: 02/02/20 00:40 Last Admin: 02/02/20 02:37 Dose: Not Given Ondansetron HCl (Zofran Odt) 4 mg PO ONETIME ONE Stop: 02/02/20 00:45 Last Admin: 02/02/20 01:03 Dose: 4 mg Pantoprazole Sodium (Protonix Iv) 80 mg IVPUSH .BOLUS ONE Stop: 02/02/20 00:37 Last Admin: 02/02/20 01:40 Dose: 80 mg Propofol (Diprivan 20 Ml) Confirm Administered Dose 200 mg .ROUTE .STK-MED ONE Stop: 02/02/20 12:50 Last Admin: 02/02/20 18:56 Dose: Not Given Scopolamine (Transderm-Scop) 1.5 mg TRDERM Q72H ONE Stop: 02/02/20 12:44 Last Admin: 02/02/20 12:55 Dose: 1.5 mg Scopolamine (Transderm-Scop) Confirm Administered Dose 1.5 mg .ROUTE .STK-MED ONE Stop: 02/02/20 12:44 Last Admin: 02/02/20 13:48 Dose: Not Given Sucralfate (Carafate) 1 gm PO ONETIME ONE Stop: 02/02/20 00:41 Last Admin: 02/02/20 01:03 Dose: 1 gm - Exam Quality Assessment: DVT Prophylaxis. No: Supplemental Oxygen, Central Line/PICC , Urine Catheter, Skin Breakdown, Restraints General: Alert, Oriented, Cooperative, No Acute Distress HEENT: Pupils Equal, Pupils Reactive, EOMI, Mucous Membr. Moist/[place]. No: Scleral Icterus Neck: Supple, Trachea Midline, No JVD, No Thyromegaly, +2 Carotid Pulse wo Bruit. No: Lymphadenopathy Lungs: Normal Respiratory Effort, Rales (Mild bilateral basilar). No: Rub Cardiovascular: Regular Rate, Regular Rhythm, No Murmurs. No: Gallops, Rubs GI/Abdominal Exam: Distended (Mild to moderate), Tender (Mild diffuse palpation pain), Abnormal Bowel Sounds (Somewhat increased, however not high-pitched), Other (Abdominal incisions are intact with only mild serosanguineous drainage). No: Guarding, Rigid, Rebound (Male) Exam: Deferred Back Exam: Normal Inspection, Full Range of Motion. No: CVA Tenderness (L), CVA Tenderness (R), Muscle Spasm Extremities: Normal Inspection, Normal Range of Motion, Non-Tender, No Pedal Edema, Normal Capillary Refill. No: Jw's Sign Peripheral Pulses: 2+: Radial (L), Radial (R), Dorsalis Pedis (L), Dorsalis Pedis (R) Skin: Ecchymosis (Normal postoperative as above) Wound/Incisions: Drainage (As above). No: Erythema Neurological: No New Focal Deficit Psy/Mental Status: Alert, Normal Affect, Normal Mood. No: Agitated, Hallucinations, Withdrawal Symptoms Sepsis Event Note - Evaluation Sepsis Screening Result: No Definite Risk - Focused Exam Vital Signs: Vital Signs Temp Pulse Pulse Resp BP BP Pulse Ox 02/03/20 08:00 36.8 C 79 20 99/56 L 96 02/03/20 03:27 37.6 C 81 16 103/49 L 95 02/02/20 23:56 37.3 C 84 16 91/43 L 95 Date Exam was Performed: 02/03/20 Time Exam was Performed: 10:58 - Problem List & Annotations (1) Acute calculous cholecystitis SNOMED Code(s): 42837582303950 Code(s): K80.00 - CALCULUS OF GALLBLADDER W ACUTE CHOLECYST W/O OBSTRUCTION Status: Acute Priority: High Current Visit: Yes Onset Date: 02/02/20 Annotation/Comment:: Successful laparoscopic cholecystectomy with some difficulty on 02/02/20, however no complications including significant blood loss , etc. Note, however, progressive anemia during this hospitalization. In addition, postoperative fever today and persistent constipation with patient not having a bowel movement since surgery. He has been gaining to eat slowly this morning and is tolerating that well. Patient did receive IV Ancef postoperatively, however will initiate additional IV Rocephin and IV Flagyl today. He was agreement with extended hospitalization. Abdominal checks with vitals. (2) Anemia SNOMED Code(s): 043655593 Code(s): D64.9 - ANEMIA, UNSPECIFIED Status: Acute Current Visit: Yes Onset Date: 02/03/20 Qualifiers: Anemia type: other cause Other causes of anemia: other cause, not classified Qualified Code(s): D64.89 - Other specified anemias Annotation/Comment:: Postoperative anemia with 2.5 g drop in his hemoglobins since admission. No significant blood loss during his laparoscopic cholecystectomy as above. Observe for now. Further workup depending on his clinical course. (3) GERD with esophagitis SNOMED Code(s): 758535967 Code(s): K21.0 - GASTRO-ESOPHAGEAL REFLUX DISEASE WITH ESOPHAGITIS Status: Chronic Priority: Medium Current Visit: Yes Annotation/Comment:: Known history of Fleming's esophagitis. Continue monitoring through his regular provider and GI (4) Hiatal hernia SNOMED Code(s): 15399976 Code(s): K44.9 - DIAPHRAGMATIC HERNIA WITHOUT OBSTRUCTION OR GANGRENE Status: Chronic Priority: High Current Visit: Yes Annotation/Comment:: Ant fundoplication could not be conducted concurrently with laparoscopic cholecystectomy as above. He does plan to have this procedure later this summer , however, by his history. (5) Hypoalbuminemia SNOMED Code(s): 328597219 Code(s): E88.09 - OTH DISORDERS OF PLASMA-PROTEIN METABOLISM, NEC Status: Acute Priority: Medium Current Visit: Yes Onset Date: 02/03/20 Annotation/Comment:: Observe for now. (6) Hypocalcemia SNOMED Code(s): 7869894 Code(s): E83.51 - HYPOCALCEMIA Status: Acute Priority: Medium Current Visit: Yes Onset Date: 02/03/20 Annotation/Comment:: Continue Tums for now. - Problem List Review Problem List Initiated/Reviewed/Updated: Yes - My Orders Last 24 Hours: My Active Orders 02/03/20 09:42 Communication Order [RC] ROUTINE 02/03/20 09:44 RT Incentive Spirometry [RC] ASDIRECTED 02/03/20 09:46 Acetaminophen [Tylenol] 650 mg PO Q4H PRN traMADol [Ultram] 50 mg PO Q6H PRN 02/03/20 10:00 cefTRIAXone [Rocephin] 1 gm Sodium Chloride 0.9% [Normal Saline] 100 ml IV Q12H 02/03/20 11:00 metroNIDAZOLE/Normal Saline [Flagyl 500 MG in NS 100 ML] 500 mg Premix Bag 1 bag IV Q8H 02/04/20 05:11 Abdomen Series w Chest 1V [CR] Routine AMYLASE [CHEM] Routine CBC WITH AUTO DIFF [HEME] Routine COMPREHENSIVE METABOLIC PN,CMP [CHEM] Routine INR,PT,PROTHROMBIN TIME [COAG] Routine LIPASE [CHEM] Routine MAGNESIUM [CHEM] Routine PTT,PARTIAL THROMBOPLSTIN TIME [COAG] Routine - Assessment Assessment:: As above - Plan Plan:: As above. Extensive precautions were given to the patient, who is in agreement with the treatment plan. Probable patient discharge in the a.m. Continue observation status for now.
[2020-02-03] MEDS ORDERED: Pantoprazole 40 MG Vial IVPUSH SCH ×2 (11:15→11:30)
[2020-02-03] MEDS ORDERED: Famotidine 20 MG/2 ML SDV IVPUSH SCH ×2 (11:15→11:30)
[2020-02-03] MEDS: traMADol 50 MG Tab PO PRN ×2 (11:27→17:31)
[2020-02-03] MEDS: Calcium Carbonate 750 MG Tab.Chew PO SCH ×2 (11:29→17:31)
[2020-02-03] MEDS: metroNIDAZOLE/Normal Saline 500 MG in Premix Bag 1 BAG IV SCH ×2 (11:30→19:47)
[2020-02-03] MEDS: Sodium Chloride 0.9% 1,000 ML IV SCH (12:35)
[2020-02-03] MEDS: Acetaminophen 325 MG Tab PO PRN (16:20)
[2020-02-03] MEDS: Pantoprazole 40 MG Vial IVPUSH SCH (19:47)
[2020-02-03] MEDS: Famotidine 20 MG/2 ML SDV IVPUSH SCH (19:47)
[2020-02-04] MEDS: Sodium Chloride 0.9% 1,000 ML IV SCH (02:13)
[2020-02-04] MEDS: metroNIDAZOLE/Normal Saline 500 MG in Premix Bag 1 BAG IV SCH ×3 (02:14→19:07)
[2020-02-04] MEDS: traMADol 50 MG Tab PO PRN (02:18)
[2020-02-04] MEDS ORDERED: Bisacodyl 5 MG Tab PO ONE (03:32)
[2020-02-04] MEDS ORDERED: Magnesium Hydroxide 400 MG/5 ML Susp 30 ML Cup PO PRN (03:32)
[2020-02-04 07:57] LABS: CHLORIDE,CL 106 mmol/L (98-107); PTT,PARTIAL THROMBOPLSTIN TIME 29.9 SEC (24.5-32.8); SODIUM,NA 139 mmol/L (136-145)
[2020-02-04] MEDS: Sodium Chloride 0.9% 10 ML Syringe FLUSH PRN ×6 (08:04→22:14)
[2020-02-04] MEDS: Pantoprazole 40 MG Vial IVPUSH SCH ×2 (08:04→19:07)
[2020-02-04] MEDS: Famotidine 20 MG/2 ML SDV IVPUSH SCH ×2 (08:04→19:07)
[2020-02-04] MEDS: Calcium Carbonate 750 MG Tab.Chew PO SCH ×2 (08:04→17:06)
[2020-02-04] MEDS ORDERED: Furosemide 40 MG/4 ML VIAL IVPUSH ONE (08:50)
[2020-02-04] MEDS ORDERED: Potassium Chloride 20 MEQ Tab.ER PO ONE (08:51)
[2020-02-04] MEDS ORDERED: Polyethylene Glycol 3350 Powder 17 GM Packet PO ONE (09:15)
[2020-02-04] MEDS ORDERED: Magnesium Citrate Solution 296 ML Bottle PO ONE (09:15)
[2020-02-04] MEDS: cefTRIAXone 1 GM in Sodium Chloride 0.9% 100 ML IV SCH ×2 (09:44→22:14)
--- NOTE | 2020-02-04 10:17 | PCM.PN ---
- General Info Date of Service: 02/04/20 Admission Dx/Problem (Free Text): Cholecystitis Functional Status: Reports: Pain Controlled, Tolerating Diet, Ambulating, Urinating, Incentive Spirometry. Denies: New Symptoms Pain Score: 2 - Review of Systems General: Reports: Fever. Denies: Weakness, Fatigue, Malaise, Chills, Night Sweats, Appetite (Improving and tolerating diet) HEENT: Reports: Glasses. Denies: Dysphasia, Ear Pain, Eye Pain, Headaches, Sinus Congestion, Sore Throat, Rhinitis, Visual Changes, Other Pulmonary: Reports: Shortness of Breath. Denies: Pleuritic Chest Pain, Cough, Sputum, Hemoptysis, Wheezing Cardiovascular: Reports: Dyspnea on Exertion. Denies: Chest Pain, Palpitations , Orthopnea, PND, Edema, Lightheadedness Gastrointestinal: Reports: Abdominal Pain, Constipation, Flatus. Denies: Decreased Appetite, Diarrhea, Difficulty Swallowing, Hematochezia, Melena, Nausea, Vomiting Genitourinary: Reports: No Symptoms. Denies: Dysuria, Frequency, Burning, Pain , Urgency, Incontinence, Hematuria, Retention, Flank Pain Musculoskeletal: Reports: No Symptoms. Denies: Neck Pain, Shoulder Pain, Arm Pain, Back Pain, Leg Pain Skin: Reports: Bruising (Improving post operative). Denies: Cyanosis, Jaundice , Diaphoresis Neurological: Reports: No Symptoms. Denies: Confusion, Dizziness, Headache, Numbness, Paresthesia, Syncope, Tingling, Difficulty Walking, Weakness Psychiatric: Reports: No Symptoms. Denies: Confusion, Depression, Anxiety, Agitation, Cravings, Hallucinations - Patient Data Vitals - Most Recent: Last Vital Signs Temp 37.4 C 02/04/20 04:00 Pulse 65 02/04/20 04:00 Resp 16 02/04/20 04:00 BP 101/54 L 02/04/20 04:00 Pulse Ox 94 L 02/04/20 04:00 Vital Signs - 24 hr 02/03/20 02/03/20 02/03/20 12:45 16:00 19:56 Temperature [ 37.4 C 37.2 C 36.9 C Oral] Pulse, 99 70 Peripheral [ Left Pulse Oximetry] Pulse, 78 Peripheral [ Right Pulse Oximetry] Respiratory 16 16 16 Rate Blood Pressure 98/58 L 95/61 [Left Upper Arm ] Blood Pressure 97/54 L [Right Upper Arm] O2 Sat by Pulse 95 98 94 L Oximetry 02/04/20 02/04/20 02:08 04:00 Temperature [ 37.5 C 37.4 C Oral] Pulse, 75 Peripheral [ Left Pulse Oximetry] Pulse, 65 Peripheral [ Right Pulse Oximetry] Respiratory 16 16 Rate Blood Pressure 99/52 L 101/54 L [Left Upper Arm ] Blood Pressure [Right Upper Arm] O2 Sat by Pulse 93 L 94 L Oximetry Weight - Most Recent: 78.471 kg I&O - Last 24 Hours: Intake & Output 02/03/20 02/04/20 02/04/20 22:59 06:59 14:59 Intake Total 640 1414 Output Total 850 600 Balance -210 814 Imaging Impressions - Last 24 Hours: Acute abdominal x-ray shows mild to moderate cardiomegaly with evidence of some fluid overload, including some Ana B lines. Mild aortic valve calcification with no pulmonary infiltrates, pneumothorax, etc. Moderately elevated right hemidiaphragm. Occasional diffuse fluid levels consistent with possible beginning ileus with additional mild free air secondary to recent laparoscopic cholecystectomy. Lab Results Last 24 Hours: Laboratory Results - last 24 hr 02/04/20 02/04/20 02/04/20 Range/Units 07:30 07:30 07:30 WBC 9.9 (4.0-10.2) K/uL RBC 3.66 L (4.33-5.41) M/uL Hgb 10.9 L (13.1-16.8) g/dL Hct 33.5 L (39.0-49.0) % MCV 91.5 (84.0-98.0) fL MCH 29.8 (28.2-33.3) pg MCHC 32.5 (31.7-36.0) g/dL RDW 13.6 (11.2-14.1) % Plt Count 215 (150-350) K/uL Neut % (Auto) 72.9 (45.0-80.0) % Lymph % (Auto) 14.3 (10.0-50.0) % Hardin % (Auto) 12.0 (2.0-14.0) % Eos % (Auto) 0.6 (0.0-5.0) % Baso % (Auto) 0.2 (0.0-2.0) % Neut # (Auto) 7.19 H (1.40-7.00) K/uL Lymph # (Auto) 1.41 (0.50-3.50) K/uL Hardin # (Auto) 1.18 H (0.00-1.00) K/uL Eos # (Auto) 0.06 (0.00-0.50) K/uL Baso # (Auto) 0.02 (0.00-0.20) K/uL PT 10.3 (9.5-12.0) SEC INR 1.0 APTT 29.9 (24.5-32.8) SEC Sodium 139 (136-145) mmol/L Potassium 3.9 (3.5-5.1) mmol/L Chloride 106 (98-107) mmol/L Carbon Dioxide 26.2 (21.0-32.0) mmol/L BUN 13 (7-18) mg/dL Creatinine 0.90 (0.51-1.17) mg/dL Est Cr Clr Drug Dosing 90.78 mL/min Estimated GFR (MDRD) > 60 mL/min Glucose 94 (74-106) mg/dL Calcium 7.7 L (8.5-10.1) mg/dL Magnesium 1.9 (1.8-2.4) mg/dL Total Bilirubin 0.4 (0.2-1.0) mg/dL AST 27 (15-37) U/L ALT 32 (12-78) U/L Alkaline Phosphatase 49 (46-116) IU/L NT-Pro-B Natriuret Pep (0-125) pg/mL Total Protein 5.8 L (6.4-8.2) g/dL Albumin 2.7 L (3.4-5.0) g/dL Amylase 25 (25-115) U/L Lipase 54 L (73-393) U/L / Range/Units 07:30 WBC (4.0-10.2) K/uL RBC (4.33-5.41) M/uL Hgb (13.1-16.8) g/dL Hct (39.0-49.0) % MCV (84.0-98.0) fL MCH (28.2-33.3) pg MCHC (31.7-36.0) g/dL RDW (11.2-14.1) % Plt Count (150-350) K/uL Neut % (Auto) (45.0-80.0) % Lymph % (Auto) (10.0-50.0) % Hardin % (Auto) (2.0-14.0) % Eos % (Auto) (0.0-5.0) % Baso % (Auto) (0.0-2.0) % Neut # (Auto) (1.40-7.00) K/uL Lymph # (Auto) (0.50-3.50) K/uL Hardin # (Auto) (0.00-1.00) K/uL Eos # (Auto) (0.00-0.50) K/uL Baso # (Auto) (0.00-0.20) K/uL PT (9.5-12.0) SEC INR APTT (24.5-32.8) SEC Sodium (136-145) mmol/L Potassium (3.5-5.1) mmol/L Chloride (98-107) mmol/L Carbon Dioxide (21.0-32.0) mmol/L BUN (7-18) mg/dL Creatinine (0.51-1.17) mg/dL Est Cr Clr Drug Dosing mL/min Estimated GFR (MDRD) mL/min Glucose (74-106) mg/dL Calcium (8.5-10.1) mg/dL Magnesium (1.8-2.4) mg/dL Total Bilirubin (0.2-1.0) mg/dL AST (15-37) U/L ALT (12-78) U/L Alkaline Phosphatase (46-116) IU/L NT-Pro-B Natriuret Pep 754 H (0-125) pg/mL Total Protein (6.4-8.2) g/dL Albumin (3.4-5.0) g/dL Amylase (25-115) U/L Lipase (73-393) U/L Med Orders - Current: Current Medications Acetaminophen (Tylenol) 650 mg PO Q4H PRN PRN Reason: Pain (Mild 1-3)/fever Last Admin: 02/03/20 16:20 Dose: 650 mg Calcium Carbonate/Glycine (Tums Extra Strength) 1,500 mg PO BID MILES Last Admin: 02/04/20 08:04 Dose: 1,500 mg Famotidine (Pepcid) 20 mg IVPUSH [facility] Last Admin: 02/04/20 08:04 Dose: 20 mg Furosemide (Lasix) 40 mg IVPUSH Q8H [facility] Ceftriaxone Sodium 1 gm/ (Sodium Chloride) 100 mls @ 200 mls/hr IV Q12H [facility] Last Admin: 02/04/20 09:44 Dose: 200 mls/hr Metronidazole 500 mg/ Premix 100 mls @ 100 mls/hr IV Q8H [facility] Last Admin: 02/04/20 02:14 Dose: 100 mls/hr Magnesium Hydroxide (Milk Of Magnesia) 30 ml PO DAILY PRN PRN Reason: Constipation Last Admin: 02/04/20 04:12 Dose: 30 ml Morphine Sulfate (Morphine) 2 mg IVPUSH Q2H PRN PRN Reason: Pain (severe 7-10) Ondansetron HCl (Zofran) 4 mg IVPUSH Q6H PRN PRN Reason: Nausea/Vomiting Last Admin: 02/02/20 06:10 Dose: 4 mg Pantoprazole Sodium (Protonix Iv) 40 mg IVPUSH [facility] Last Admin: 02/04/20 08:04 Dose: 40 mg Sodium Chloride (Saline Flush) 10 ml FLUSH ASDIRECTED PRN PRN Reason: Keep Vein Open Last Admin: 02/04/20 09:45 Dose: 10 ml Tramadol HCl (Ultram) 50 mg PO Q6H PRN PRN Reason: Pain (moderate 4-6) Last Admin: 02/04/20 02:18 Dose: 50 mg Discontinued Medications Al Hydroxide/Mg Hydroxide (Gi Cocktail) 30 ml PO ONETIME ONE Stop: 02/01/20 23:22 Last Admin: 02/01/20 23:27 Dose: 30 ml Bisacodyl (Dulcolax) 10 mg PO ONETIME ONE Stop: 02/04/20 03:33 Last Admin: 02/04/20 04:12 Dose: 10 mg Bupivacaine HCl/Epinephrine Bitart (Marcaine 0.25%/Epinephrine 1:200,000) 30 ml INJECT .STK-MED ONE Stop: 02/02/20 13:51 Last Admin: 02/02/20 13:50 Dose: 30 ml Calcium Carbonate/Glycine (Tums Extra Strength) 750 mg PO Q2HR PRN PRN Reason: Indigestion Cefazolin Sodium (Ancef) 2 gm IV .STK-MED ONE Stop: 02/02/20 13:41 Last Admin: 02/02/20 13:40 Dose: 2 gm Famotidine (Pepcid) 20 mg IVPUSH ONETIME ONE Stop: 02/02/20 00:37 Last Admin: 02/02/20 01:40 Dose: 20 mg Famotidine (Pepcid) 20 mg IVPUSH Q12H [facility] Last Admin: 02/03/20 11:21 Dose: Not Given Famotidine (Pepcid) 20 mg IVPUSH Q12H [facility] Last Admin: 02/03/20 11:29 Dose: 20 mg Fentanyl (Sublimaze) Confirm Administered Dose 250 mcg .ROUTE .STK-MED ONE Stop: 02/02/20 12:50 Last Admin: 02/02/20 18:56 Dose: Not Given Fentanyl (Sublimaze) Confirm Administered Dose 100 mcg .ROUTE .STK-MED ONE Stop: 02/02/20 16:16 Last Admin: 02/02/20 18:56 Dose: Not Given Furosemide (Lasix) 60 mg IVPUSH NOW ONE Stop: 02/04/20 08:51 Last Admin: 02/04/20 09:43 Dose: 60 mg Hydromorphone HCl (Dilaudid) 1 mg IM ONETIME ONE Stop: 02/02/20 00:44 Last Admin: 02/02/20 01:04 Dose: 1 mg Sodium Chloride (Normal Saline) 1,000 mls @ 125 mls/hr IV ASDIRECTED [facility] Last Admin: 02/02/20 23:55 Dose: 125 mls/hr Lactated Ringer's (Ringers, Lactated) 1,000 mls @ 75 mls/hr IV ASDIRECTED [facility] Last Admin: 02/02/20 12:35 Dose: 75 mls/hr Piperacillin Sod/Tazobactam (Sod 3.375 gm/ Sodium Chloride) 100 mls @ 200 mls/ hr IV Q6H [facility] Stop: 02/03/20 05:29 Last Admin: 02/03/20 05:04 Dose: 200 mls/hr Sodium Chloride (Normal Saline) 1,000 mls @ 80 mls/hr IV ASDIRECTED [facility] Last Admin: 02/04/20 02:13 Dose: 80 mls/hr Iopamidol (Isovue-300 (61%)) 100 ml IVPUSH ONETIME ONE Stop: 02/02/20 01:21 Last Admin: 02/02/20 02:03 Dose: 100 ml Ketorolac Tromethamine (Toradol) 30 mg IVPUSH ONETIME ONE Stop: 02/02/20 17:28 Last Admin: 02/02/20 17:35 Dose: 30 mg Magnesium Citrate (Citrate Of Magnesia) 0 ml PO ONETIME ONE Stop: 02/04/20 09:16 Last Admin: 02/04/20 09:44 Dose: 296 ml Meperidine HCl (Demerol) 25 mg IVPUSH ONETIME ONE Stop: 02/02/20 12:10 Last Admin: 02/02/20 12:35 Dose: 25 mg Midazolam HCl (Versed 1 Mg/Ml) Confirm Administered Dose 2 mg .ROUTE .STK-MED ONE Stop: 02/02/20 12:50 Last Admin: 02/02/20 18:56 Dose: Not Given Morphine Sulfate (Morphine) 4 mg IVPUSH ONETIME ONE Stop: 02/02/20 00:40 Last Admin: 02/02/20 02:36 Dose: Not Given Ondansetron HCl (Zofran) 4 mg IVPUSH ONETIME ONE Stop: 02/02/20 00:40 Last Admin: 02/02/20 02:37 Dose: Not Given Ondansetron HCl (Zofran Odt) 4 mg PO ONETIME ONE Stop: 02/02/20 00:45 Last Admin: 02/02/20 01:03 Dose: 4 mg Pantoprazole Sodium (Protonix Iv) 80 mg IVPUSH .BOLUS ONE Stop: 02/02/20 00:37 Last Admin: 02/02/20 01:40 Dose: 80 mg Pantoprazole Sodium (Protonix Iv) 40 mg IVPUSH Q12H [facility] Last Admin: 02/03/20 11:21 Dose: Not Given Pantoprazole Sodium (Protonix Iv) 40 mg IVPUSH Q12H [facility] Last Admin: 02/03/20 11:29 Dose: 40 mg Polyethylene Glycol (Miralax) 17 gm PO ONETIME ONE Stop: 02/04/20 09:16 Last Admin: 02/04/20 09:44 Dose: 17 gm Potassium Chloride (Klor-Con M20) 40 meq PO ONETIME ONE Stop: 02/04/20 08:52 Last Admin: 02/04/20 09:39 Dose: 40 meq Propofol (Diprivan 20 Ml) Confirm Administered Dose 200 mg .ROUTE .STK-MED ONE Stop: 02/02/20 12:50 Last Admin: 02/02/20 18:56 Dose: Not Given Scopolamine (Transderm-Scop) 1.5 mg TRDERM Q72H ONE Stop: 02/02/20 12:44 Last Admin: 02/02/20 12:55 Dose: 1.5 mg Scopolamine (Transderm-Scop) Confirm Administered Dose 1.5 mg .ROUTE .STK-MED ONE Stop: 02/02/20 12:44 Last Admin: 02/02/20 13:48 Dose: Not Given Sucralfate (Carafate) 1 gm PO ONETIME ONE Stop: 02/02/20 00:41 Last Admin: 02/02/20 01:03 Dose: 1 gm - Exam Quality Assessment: Supplemental Oxygen, DVT Prophylaxis. No: Central Line/PICC , Urine Catheter, Skin Breakdown, Restraints General: Alert, Oriented, No Acute Distress HEENT: Pupils Equal, Pupils Reactive, EOMI, Mucous Membr. Moist/[place], Other (He was wearing glasses). No: Scleral Icterus Neck: Supple, Trachea Midline, No JVD, No Thyromegaly. No: Lymphadenopathy Lungs: Rales (Mild bilateral basilar). No: Decreased Breath Sounds, Rhonchi, Rub, Wheezing Cardiovascular: Regular Rate, Regular Rhythm, No Murmurs. No: Gallops, Rubs GI/Abdominal Exam: No Organomegaly, No Abnormal Bruit, No Mass, Distended ( Persistent moderate), Tender (Mild diffuse palpation pain ), Abnormal Bowel Sounds (Diffuse decreased bowel sounds high-pitched in nature), Other ( Laparoscopic operative sites are intact clean and dry with mild ecchymosis). No : Guarding, Rigid, Rebound (Male) Exam: Deferred Back Exam: Normal Inspection, Full Range of Motion. No: CVA Tenderness (L), CVA Tenderness (R), Muscle Spasm Extremities: Normal Inspection, Normal Range of Motion, Non-Tender, No Pedal Edema, Normal Capillary Refill. No: Jw's Sign Peripheral Pulses: 2+: Radial (L), Radial (R), Dorsalis Pedis (L), Dorsalis Pedis (R) Skin: Ecchymosis (As above) Wound/Incisions: Healing Well, Dressing Dry and Intact Neurological: No New Focal Deficit, Other (No Clinical orthostasis) Psy/Mental Status: Alert, Normal Affect, Normal Mood. No: Agitated, Hallucinations, Withdrawal Symptoms Sepsis Event Note - Evaluation Sepsis Screening Result: No Definite Risk - Focused Exam Vital Signs: Vital Signs Temp Pulse Pulse Resp BP Pulse Ox 02/04/20 04:00 37.4 C 65 16 101/54 L 94 L 02/04/20 02:08 37.5 C 75 16 99/52 L 93 L Date Exam was Performed: 02/04/20 Time Exam was Performed: 10:12 - Problem List & Annotations (1) Acute calculous cholecystitis SNOMED Code(s): 82755606421825 Code(s): K80.00 - CALCULUS OF GALLBLADDER W ACUTE CHOLECYST W/O OBSTRUCTION Status: Acute Priority: High Current Visit: Yes Onset Date: 02/02/20 Annotation/Comment:: Persistent abdominal distention with borderline beginning postoperative ileus by x-rays as above. 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 Magnesium citrate and MiraLAX mixture to be given in the a.m. of 02/03. Successful laparoscopic cholecystectomy with some difficulty on 02/02/20, however no complications, including significant blood loss, etc. during surgery. Note, however, progressive anemia during this hospitalization with hemoglobin of 14.5 on admission and 10.9 on 02/03, however overall stable hemoglobin since 02/02 with only a 1.1 g drop possibly secondary to rehydration effect. In addition, postoperative fever started on 02/02 and does persist today. He has been tolerating his diet well. Patient did receive IV Ancef postoperatively, however I did initiate additional IV Rocephin and IV Flagyl and 02/02 today. He is agreement with extended hospitalization with patient changed to inpatient status on 02/03 secondary to refractory symptoms as above. Continue Abdominal checks with vitals. (2) Anemia SNOMED Code(s): 856579259 Code(s): D64.9 - ANEMIA, UNSPECIFIED Status: Acute Current Visit: Yes Onset Date: 02/03/20 Qualifiers: Anemia type: other cause Other causes of anemia: other cause, not classified Qualified Code(s): D64.89 - Other specified anemias Annotation/Comment:: Postoperative anemia with 3.6 g drop in his hemoglobins since admission. No significant blood loss during his laparoscopic cholecystectomy as above. Observe for now. Further workup depending on his clinical course. (3) GERD with esophagitis SNOMED Code(s): 658228987 Code(s): K21.0 - GASTRO-ESOPHAGEAL REFLUX DISEASE WITH ESOPHAGITIS Status: Chronic Priority: Medium Current Visit: Yes Annotation/Comment:: Known history of Fleming's esophagitis. IV Pepcid and IV Protonix initiated on 02/02. Continue monitoring through his regular provider and GI with consideration of EGD depending on his clinical course. (4) Hiatal hernia SNOMED Code(s): 02361057 Code(s): K44.9 - DIAPHRAGMATIC HERNIA WITHOUT OBSTRUCTION OR GANGRENE Status: Chronic Priority: Medium Current Visit: Yes Annotation/Comment:: Ant fundoplication could not be conducted concurrently with laparoscopic cholecystectomy as above. He does plan to have this procedure later this summer , however, by his history. (5) Hypoalbuminemia SNOMED Code(s): 832825684 Code(s): E88.09 - OTH DISORDERS OF PLASMA-PROTEIN METABOLISM, NEC Status: Acute Priority: Medium Current Visit: Yes Onset Date: 02/03/20 Annotation/Comment:: Observe for now. (6) Hypocalcemia SNOMED Code(s): 7547382 Code(s): E83.51 - HYPOCALCEMIA Status: Acute Priority: Medium Current Visit: Yes Onset Date: 02/03/20 Annotation/Comment:: Continue Tums for now. - Problem List Review Problem List Initiated/Reviewed/Updated: Yes - My Orders Last 24 Hours: My Active Orders 02/03/20 09:42 Communication Order [RC] ROUTINE 02/03/20 09:44 RT Incentive Spirometry [RC] ASDIRECTED 02/03/20 09:46 Acetaminophen [Tylenol] 650 mg PO Q4H PRN traMADol [Ultram] 50 mg PO Q6H PRN 02/03/20 10:00 cefTRIAXone [Rocephin] 1 gm Sodium Chloride 0.9% [Normal Saline] 100 ml IV Q12H 02/03/20 11:00 metroNIDAZOLE/Normal Saline [Flagyl 500 MG in NS 100 ML] 500 mg Premix Bag 1 bag IV Q8H 02/03/20 11:13 Calcium Carbonate [Tums Extra Strength] 1,500 mg PO BID 02/03/20 20:00 Famotidine [Pepcid] 20 mg IVPUSH Pantoprazole [ProTONIX IV] 40 mg IVPUSH [id number]/04/20 03:32 Magnesium Hydroxide [Milk of Magnesia] 30 ml PO DAILY PRN 02/04/20 05:11 Abdomen Series w Chest 1V [CR] Routine 02/04/20 09:00 Admission Status [Patient Status] [ADT] Routine 02/04/20 17:00 Furosemide [Lasix] 40 mg IVPUSH Q8H 02/05/20 05:11 Abdomen Series w Chest 1V [CR] Routine BASIC METABOLIC PANEL,BMP [CHEM] Routine CBC WITH AUTO DIFF [HEME] Routine PRO B-TYPE NATRIUR PEPT,BNPPRO [CHEM] Routine - Assessment Assessment:: As above - Plan Plan:: As above. Extensive precautions were given to the patient, who is in agreement with the treatment plan. Change the patient to inpatient status as above with probable patient discharge in the a.m. Note extended hospitalization secondary to multiple complications as above.
[2020-02-04] MEDS: Furosemide 40 MG/4 ML VIAL IVPUSH SCH (17:06)
[2020-02-05] MEDS: Furosemide 40 MG/4 ML VIAL IVPUSH SCH (00:17)
[2020-02-05] MEDS: Sodium Chloride 0.9% 10 ML Syringe FLUSH PRN ×3 (00:17→07:49)
[2020-02-05] MEDS: metroNIDAZOLE/Normal Saline 500 MG in Premix Bag 1 BAG IV SCH (03:45)
[2020-02-05 07:27] VITALS: BP 113/64; PULSE 74
[2020-02-05] MEDS: Calcium Carbonate 750 MG Tab.Chew PO SCH (07:47)
[2020-02-05] MEDS: Famotidine 20 MG/2 ML SDV IVPUSH SCH (07:47)
[2020-02-05] MEDS: Acetaminophen 325 MG Tab PO PRN (07:48)
[2020-02-05] MEDS: Pantoprazole 40 MG Vial IVPUSH SCH (07:50)
[2020-02-05 08:11] LABS: CHLORIDE,CL 103 mmol/L (98-107); SODIUM,NA 140 mmol/L (136-145)
--- NOTE | 2020-02-05 09:02 | PCM.DCSUM1 ---
Discharge Summary - Hospital Course HPI Initial Comments: See emergency room note/admission H&P Brief History: See emergency room note/admission H&P Diagnosis: Stroke: No Modified Turner Scale: Slight Disable;Unable to Carry Out Prev Act.Able to Look After Affairs Modified Turner Scale Score: 2 - Discharge Data Discharge Date: 02/05/20 Discharge Disposition: Home, Self-Care 01 Condition: Good - Referral to Home Health Primary Care Physician: Lesia Stacy NP - Discharge Diagnosis/Problem(s) (1) Acute calculous cholecystitis SNOMED Code(s): 01308393354590 ICD Code: K80.00 - CALCULUS OF GALLBLADDER W ACUTE CHOLECYST W/O OBSTRUCTION Status: Acute Priority: High Current Visit: Yes Onset Date: 02/02/20 Problem Details: Excellent results with Kayexalate and magnesium citrate preparation with normal bowel movements, including this morning. Continually improved minimal postoperative pain with no nausea, melena, hematochezia, nausea , emesis, etc. Note persistent abdominal distention with borderline beginning postoperative ileus by x-rays on 02/03 with resolution of abdominal distention and improved abdominal x-rays today. Patient did not have a bowel movement after his MiraLAX and magnesium citrate were given as above. 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 Successful laparoscopic cholecystectomy with some difficulty on 02/02/20, however no complications, including significant blood loss, etc. during surgery. Note, however, progressive anemia during this hospitalization with hemoglobin of 14.5 on admission and 10.9 on 02/03, however overall stable hemoglobin since 02/02 with only a 1.1 g drop possibly secondary to rehydration effect. Note improved hemoglobin of 11.9 today after diuresis with IV Lasix with no evidence of significant postoperative bleed, etc. In addition, postoperative fever started on 02/02 and does still persist today. He will be discharged with Augmentin and Flagyl with follow-up with Dr. Joyce on 02/08 per discharge instructions. The patient continues to tolerate his diet well. Patient did receive IV Ancef postoperatively, however I did initiate additional IV Rocephin and IV Flagyl and 02/02 today. He is agreement with extended hospitalization with patient changed to inpatient status on 02/03 secondary to refractory symptoms as above. Abdominal checks with vitals have been stable. (2) Anemia SNOMED Code(s): 601300191 ICD Code: D64.9 - ANEMIA, UNSPECIFIED Status: Acute Current Visit: Yes Onset Date: 02/03/20 Problem Details: Postoperative anemia with 3.6 g drop in his hemoglobin during this hospitalization, however improved as above. No significant blood loss during his laparoscopic cholecystectomy as above. Observe for now. Further workup depending on his clinical course. Qualifiers: Anemia type: other cause Other causes of anemia: other cause, not classified Qualified Code(s): D64.89 - Other specified anemias (3) GERD with esophagitis SNOMED Code(s): 618932613 ICD Code: K21.0 - GASTRO-ESOPHAGEAL REFLUX DISEASE WITH ESOPHAGITIS Status : Chronic Priority: Medium Current Visit: Yes Problem Details: Known history of Fleming's esophagitis. IV Pepcid and IV Protonix initiated on 02/02. Continue monitoring through his regular provider and GI with consideration of EGD depending on his clinical course. (4) Hiatal hernia SNOMED Code(s): 88660821 ICD Code: K44.9 - DIAPHRAGMATIC HERNIA WITHOUT OBSTRUCTION OR GANGRENE Status: Chronic Priority: Medium Current Visit: Yes Problem Details: Ant fundoplication could not be conducted concurrently with laparoscopic cholecystectomy as above. He does plan to have this procedure later this summer , however, by his history. (5) Hypoalbuminemia SNOMED Code(s): 803798344 ICD Code: E88.09 - H DISORDERS OF PLASMA-PROTEIN METABOLISM, NEC Status: Acute Priority: Medium Current Visit: Yes Onset Date: 02/03/20 Problem Details: Observe for now. (6) Hypocalcemia SNOMED Code(s): 6131744 ICD Code: E83.51 - HYPOCALCEMIA Status: Acute Priority: Medium Current Visit: Yes Onset Date: 02/03/20 Problem Details: Continue Tums for now with improved calcium prior to discharge. (7) Fluid overload SNOMED Code(s): 36848081 ICD Code: E87.70 - FLUID OVERLOAD, UNSPECIFIED Status: Acute Priority: High Current Visit: Yes Onset Date: ~02/03/20 Problem Details: Mild fluid overload secondary to IV fluids with initiation of IV Lasix and oral potassium supplementation on 02/04 with excellent results. No chest pain or anginal complaints or evidence of significant CHF Qualifiers: Hypervolemia type: other Qualified Code(s): E87.79 - Other fluid overload - Patient Summary/Data Operative Procedure(s) Performed: Laparoscopic Cholecystectomy Complications: 1. Post operative anemia as above. 2. Post operative abdominal infection with secondary ileus. 3. Fluid overload with no anginal complaints or significant clinical CHF Consults: Surgical consultation with Mustapha Joyce MD Labs Pending at D/C: Final x-ray reports of acute abdominal x-rays on 02/04/20 and 02/05/20 Recommended Follow-up Testing/Procedures: As per discharge orders Planned Operative Procedure(s) after DC: As per discharge orders Hospital Course: The patient was initially placed in observation status for laparoscopic cholecystectomy with subsequent minor postoperative complications as above, which this did result in an extended hospital stay with the patient to be transferred from observation status to acute/inpatient care on 02/03. Otherwise the treatment as above. Patient's clinical exam and vital signs were much improved at time of discharge. - Patient Instructions Diet: Heart Healthy Diet Activity: No Lifting Over 10 Pounds, No Strenuous Activities Driving: May Drive Today Showering/Bathing: May Shower Wound/Incision Care: Keep Operative Site/Wound Site Clean and Dry, Change Dressing Daily Notify Provider of: Fever, Increased Pain, Swelling and Redness, Drainage, Nausea and/or Vomiting Other/Special Instructions: 1. Follow-up with Mustapha Joyce M.D. on 02/08 at 10:00 a.m. as already scheduled with recommended CBC, comprehensive metabolic panel, BNP, and acute abdominal x-rays at that time. 2. Tylenol 650 mg by mouth every 4 hours and/or OTC ibuprofen 2-3 tabs by mouth every 6 hours with food as directed./needed. You may stagger these medications for 48-72 hours only , which essentially means that you are receiving a pain medication about every 2 hours. 3. Immediately after this visit verify that your cellular telephone' s voicemail has been activated and is empty. Also verify that your home telephone's answering machine is operating properly and has space to receive messages. Note that it is sometimes necessary for us to be able to contact you at a later date to discuss your medical care. 4. Please remember that we are ALWAYS here for you and want to answer any questions you may have. Feel free to call the hospital any time and we call you back [facility]. SYMPTOMS TO LOOK OUT FOR : You have been hospitalized for your gallbladder disease and should look out for the following symptoms after discharge: 1. Make absolutely certain that you completely understand the reasons you are taking any of your new and/or old medications and/or supplements as discussed with you by the nurse at time of discharge. This includes possible side effects versus interactions between your medications and/or supplements. Don't be afraid to take extra time to ask any questions or express any concerns, because that is what we are here for. It is very important to us that you understand your care. 2. Notify this facility , telephone number [phone], and/or your regular provider [facility] if you experience any of the following symptoms: a. Any increased abdominal pain, heartburn, nausea, vomiting, etc., which has changed since sure hospital discharge and is not responding to medications and/or supplements you have been prescribed. b. Any change in bowel habits, including more than 5 watery stools per day, severe constipation with no excellent bowel movements every 2 days after discharge, and/or any change in your normal bowel habits. c. Any sudden onset of change of your stool appearance, including blood, black tarry stools, etc. as discussed at discharge. d. Any persistent fever equal to or greater than 100.5, which does not respond to recommended doses of Tylenol, ibuprofen, Aleve, or other previously prescribed fever medications. SYMPTOMS TO LOOK OUT FOR: You have had a mild fluid overload during this hospitalization and should look out for the following symptoms after discharge: 1. Make absolutely certain that you completely understand the reasons you are taking any of your new and/or old medications and/or supplements as discussed with you by the nurse at time of discharge. This includes possible side effects versus interactions between your medications and/or supplements. Don't be afraid to take extra time to ask any questions or express any concerns , because that is what we are here for. It is very important to us that you understand your care. 2. Notify this facility, telephone number [phone], and/or your regular provider [facility] if you experience any of the following symptoms: a. Sudden chest pressure or pain especially with radiation to the neck, jaws, arms, mid back, etc. especially if these are associated with nausea , cold sweats, dizziness, racing heart, weakness, near fainting, etc. b. Any shortness of breath or decreased exercise tolerance that has changed since your hospital discharge and is not normal for you. c. Any persistent heartburn type symptoms that is not normal for you and is not relieved by any of your discharge medications or supplements. d. Any progressive weight gain especially more than 5 pounds of weight gain prior to your scheduled appointment with your regular provider. e. Any racing heart, dizziness, etc. not associated with the other symptoms as above. - Discharge Plan *PRESCRIPTION DRUG MONITORING PROGRAM REVIEWED*: Not Applicable *COPY OF PRESCRIPTION DRUG MONITORING REPORT IN PATIENT SUSSY: Not Applicable Prescriptions/Med Rec: Amoxicillin/Potassium Clav [Augmentin 875-125 Tablet] 1 each PO BIDMEALS #14 tablet Furosemide [Lasix] 20 mg PO DAILY #7 tab metroNIDAZOLE [Flagyl] 500 mg PO TIDMEALS #21 tablet Potassium Chloride 20 meq PO DAILY #7 tablet.er Home Medications: Home Meds Pantoprazole Sodium [Protonix] 40 mg PO DAILY 06/16/18 [History] Acetaminophen [Tylenol] 650 mg PO Q4H PRN tablet 02/05/20 [Rx] Amoxicillin/Potassium Clav [Augmentin 875-125 Tablet] 1 each PO BIDMEALS #14 tablet 02/05/20 [Rx] Calcium Carbonate [Tums Extra Strength] 1,500 mg PO BID tab.chew 02/05/20 [Rx] Furosemide [Lasix] 20 mg PO DAILY #7 tab 02/05/20 [Rx] Potassium Chloride 20 meq PO DAILY #7 tablet.er 02/05/20 [Rx] metroNIDAZOLE [Flagyl] 500 mg PO TIDMEALS #21 tablet 02/05/20 [Rx] Oxygen Therapy Mode: Room Air Patient Handouts: Potassium chloride tablets, extended-release tablets or capsules, Furosemide injection, Ceftriaxone injection, Laparoscopic Cholecystectomy, Metronidazole injection, Magnesium Citrate oral solution, Polyethylene Glycol powder Forms: ED Department Discharge Referrals: Lesia Stacy NP [Primary Care Provider] - - Discharge Summary/Plan Comment DC Time >30 min.: Yes (Coordination of care ) Discharge Summary/Plan Comment: As above, Extensive precautions were given to the patient, who is in agreement with the treatment plan. See Patient Instructions for further treatment and plan. - General Info Date of Service: 02/05/20 Admission Dx/Problem (Free Text: Cholecystitis Functional Status: Reports: Pain Controlled, Tolerating Diet, Ambulating, Urinating, Incentive Spirometry. Denies: New Symptoms Numeric/FACES Score: 1 - Review of Systems General: Reports: Fever. Denies: Weakness, Fatigue, Malaise, Chills, Night Sweats, Appetite (Good), Other HEENT: Reports: Glasses. Denies: Dysphasia, Ear Pain, Eye Pain, Headaches, Post Nasal Drip, Sinus Congestion, Sore Throat, Rhinitis, Visual Changes Pulmonary: Reports: No Symptoms. Denies: Shortness of Breath, Pleuritic Chest Pain, Cough, Sputum, Hemoptysis, Wheezing Cardiovascular: Reports: No Symptoms. Denies: Chest Pain, Palpitations, Dyspnea on Exertion, Orthopnea, PND, Edema, Lightheadedness Gastrointestinal: Reports: Abdominal Pain (Improving postoperative). Denies: Constipation, Decreased Appetite, Diarrhea, Difficulty Swallowing, Flatus, Hematochezia, Melena, Nausea, Vomiting Genitourinary: Reports: No Symptoms. Denies: Dysuria, Frequency, Burning, Pain , Urgency, Incontinence, Hematuria, Retention, Flank Pain Musculoskeletal: Reports: No Symptoms. Denies: Neck Pain, Shoulder Pain, Arm Pain, Back Pain, Leg Pain Skin: Reports: Bruising (Improving). Denies: Jaundice, Pallor, Diaphoresis, Pruritis, Rash Neurological: Reports: No Symptoms. Denies: Confusion, Dizziness, Headache, Numbness, Paresthesia, Tingling, Weakness Psychiatric: Reports: No Symptoms. Denies: Confusion, Depression, Anxiety, Agitation, Cravings, Hallucinations - Patient Data Vitals - Most Recent: Last Vital Signs Temp 37.3 C 02/05/20 07:25 Pulse 74 02/05/20 07:25 Resp 16 02/05/20 07:25 BP 113/64 02/05/20 07:25 Pulse Ox 95 02/05/20 07:25 Vital Signs - 24 hr 02/04/20 02/04/20 02/04/20 12:00 16:00 19:06 Temperature [ 37.6 C 37.4 C Oral] Temperature [ 37.1 C Temporal] Pulse, 56 L 68 Peripheral [ Left Pulse Oximetry] Pulse, 70 Peripheral [ Right Pulse Oximetry] Respiratory 16 18 18 Rate Blood Pressure 111/74 109/68 110/67 [Left Upper Arm ] O2 Sat by Pulse 94 L 96 95 Oximetry 02/05/20 02/05/20 02/05/20 00:00 03:43 07:25 Temperature [ 37.4 C 37.1 C 37.3 C Oral] Temperature [ Temporal] Pulse, Peripheral [ Left Pulse Oximetry] Pulse, 75 70 74 Peripheral [ Right Pulse Oximetry] Respiratory 18 18 16 Rate Blood Pressure 101/59 L 100/60 113/64 [Left Upper Arm ] O2 Sat by Pulse 95 96 95 Oximetry Weight - Most Recent: 77.292 kg I&O - Last 24 hours: Intake & Output 02/04/20 02/05/20 02/05/20 22:59 06:59 14:59 Intake Total 440 600 Output Total 2200 1500 Balance -1760 -900 Imaging Impressions - Last 24 hrs: Acute abdominal x-rays on 02/03 show mild to moderate cardiomegaly with evidence of some fluid overload, including some Ana B lines. Mild aortic valve calcification with no pulmonary infiltrates, pneumothorax, etc. Moderately elevated right hemidiaphragm. Occasional diffuse fluid levels consistent with possible beginning ileus with additional mild free air secondary to recent laparoscopic cholecystectomy. Acute abdominal x-rays on 02/04 show stable to improved mild cardiomegaly with significantly improved fluid overload including Ana B lines. Stable mild aortic valve calcification with no pulmonary infiltrates, pneumothorax, etc. Stable moderately elevated right hemidiaphragm. Only borderline occasional fluid levels with no evidence of free air, ileus, obstruction, etc. Surgical clips noted in right upper quadrant consistent with recent laparoscopic cholecystectomy with persistent mild to moderate nonspecific increased bowel gaseous pattern. Lab Results - Last 24 hrs: Laboratory Results - last 24 hr 02/04/20 02/05/20 02/05/20 Range/Units 07:30 07:15 07:15 WBC 8.2 (4.0-10.2) K/uL RBC 4.03 L (4.33-5.41) M/uL Hgb 11.9 L (13.1-16.8) g/dL Hct 36.1 L (39.0-49.0) % MCV 89.6 (84.0-98.0) fL MCH 29.5 (28.2-33.3) pg MCHC 33.0 (31.7-36.0) g/dL RDW 13.1 (11.2-14.1) % Plt Count 243 (150-350) K/uL Neut % (Auto) 62.9 (45.0-80.0) % Lymph % (Auto) 21.8 (10.0-50.0) % Miller % (Auto) 12.8 (2.0-14.0) % Eos % (Auto) 2.1 (0.0-5.0) % Baso % (Auto) 0.4 (0.0-2.0) % Neut # (Auto) 5.13 (1.40-7.00) K/uL Lymph # (Auto) 1.78 (0.50-3.50) K/uL Miller # (Auto) 1.04 H (0.00-1.00) K/uL Eos # (Auto) 0.17 (0.00-0.50) K/uL Baso # (Auto) 0.03 (0.00-0.20) K/uL Sodium 140 (136-145) mmol/L Potassium 3.6 (3.5-5.1) mmol/L Chloride 103 (98-107) mmol/L Carbon Dioxide 26.9 (21.0-32.0) mmol/L BUN 14 (7-18) mg/dL Creatinine 0.93 (0.51-1.17) mg/dL Est Cr Clr Drug Dosing 87.85 mL/min Estimated GFR (MDRD) > 60 mL/min Glucose 100 (74-106) mg/dL Calcium 8.2 L (8.5-10.1) mg/dL NT-Pro-B Natriuret Pep 754 H 459 H (0-125) pg/mL KEITH Results - Last 24 hrs: Microbiology 02/04/20 10:27 Stool Occult Blood (KEITH) - Final Stool / Feces NEGATIVE OCCULT BLOOD REFERENCE RANGE: NEGATIVE Med Orders - Current: Current Medications Acetaminophen (Tylenol) 650 mg PO Q4H PRN PRN Reason: Pain (Mild 1-3)/fever Last Admin: 02/05/20 07:48 Dose: 650 mg Calcium Carbonate/Glycine (Tums Extra Strength) 1,[address] [facility] Last Admin: 02/05/20 07:47 Dose: 1,500 mg Famotidine (Pepcid) 20 mg IVPUSH 0800,1999 [facility] Last Admin: 02/05/20 07:47 Dose: 20 mg Furosemide (Lasix) [address] [facility] Last Admin: 02/05/20 00:17 Dose: 40 mg Ceftriaxone Sodium 1 gm/ (Sodium Chloride) 100 mls @ 200 mls/hr IV Q12H [facility] Last Admin: 02/04/20 22:14 Dose: 200 mls/hr Metronidazole 500 mg/ Premix 100 mls @ 100 mls/hr IV Q8H [facility] Last Admin: 02/05/20 03:45 Dose: 100 mls/hr Magnesium Hydroxide (Milk Of Magnesia) 30 ml PO DAILY PRN PRN Reason: Constipation Last Admin: 02/04/20 04:12 Dose: 30 ml Morphine Sulfate (Morphine) 2 mg IVPUSH Q2H PRN PRN Reason: Pain (severe 7-10) Ondansetron HCl (Zofran) 4 mg IVPUSH Q6H PRN PRN Reason: Nausea/Vomiting Last Admin: 02/02/20 06:10 Dose: 4 mg Pantoprazole Sodium (Protonix Iv) [address] [facility] Last Admin: 02/05/20 07:50 Dose: 40 mg Sodium Chloride (Saline Flush) 10 ml FLUSH ASDIRECTED PRN PRN Reason: Keep Vein Open Last Admin: 02/05/20 07:49 Dose: 10 ml Tramadol HCl (Ultram) 50 mg PO Q6H PRN PRN Reason: Pain (moderate 4-6) Last Admin: 02/04/20 02:18 Dose: 50 mg Discontinued Medications Al Hydroxide/Mg Hydroxide (Gi Cocktail) 30 ml PO ONETIME ONE Stop: 02/01/20 23:22 Last Admin: 02/01/20 23:27 Dose: 30 ml Bisacodyl (Dulcolax) 10 mg PO ONETIME ONE Stop: 02/04/20 03:33 Last Admin: 02/04/20 04:12 Dose: 10 mg Bupivacaine HCl/Epinephrine Bitart (Marcaine 0.25%/Epinephrine 1:200,000) 30 ml INJECT .STK-MED ONE Stop: 02/02/20 13:51 Last Admin: 02/02/20 13:50 Dose: 30 ml Calcium Carbonate/Glycine (Tums Extra Strength) 750 mg PO Q2HR PRN PRN Reason: Indigestion Cefazolin Sodium (Ancef) 2 gm IV .STK-MED ONE Stop: 02/02/20 13:41 Last Admin: 02/02/20 13:40 Dose: 2 gm Famotidine (Pepcid) 20 mg IVPUSH ONETIME ONE Stop: 02/02/20 00:37 Last Admin: 02/02/20 01:40 Dose: 20 mg Famotidine (Pepcid) [address] [facility] Last Admin: 02/03/20 11:21 Dose: Not Given Famotidine (Pepcid) [address] [facility] Last Admin: 02/03/20 11:29 Dose: 20 mg Fentanyl (Sublimaze) Confirm Administered Dose 250 mcg .ROUTE .STK-MED ONE Stop: 02/02/20 12:50 Last Admin: 02/02/20 18:56 Dose: Not Given Fentanyl (Sublimaze) Confirm Administered Dose 100 mcg .ROUTE .STK-MED ONE Stop: 02/02/20 16:16 Last Admin: 02/02/20 18:56 Dose: Not Given Furosemide (Lasix) 60 mg IVPUSH NOW ONE Stop: 02/04/20 08:51 Last Admin: 02/04/20 09:43 Dose: 60 mg Hydromorphone HCl (Dilaudid) 1 mg IM ONETIME ONE Stop: 02/02/20 00:44 Last Admin: 02/02/20 01:04 Dose: 1 mg Sodium Chloride (Normal Saline) 1,000 mls @ 125 mls/hr IV ASDIRECTED [facility] Last Admin: 02/02/20 23:55 Dose: 125 mls/hr Lactated Ringer's (Ringers, Lactated) 1,000 mls @ 75 mls/hr IV ASDIRECTED [facility] Last Admin: 02/02/20 12:35 Dose: 75 mls/hr Piperacillin Sod/Tazobactam (Sod 3.375 gm/ Sodium Chloride) 100 mls @ 200 mls/ hr IV Q6H [facility] Stop: 02/03/20 05:29 Last Admin: 02/03/20 05:04 Dose: 200 mls/hr Sodium Chloride (Normal Saline) 1,000 mls @ 80 mls/hr IV ASDIRECTED [facility] Last Admin: 02/04/20 02:13 Dose: 80 mls/hr Iopamidol (Isovue-300 (61%)) 100 ml IVPUSH ONETIME ONE Stop: 02/02/20 01:21 Last Admin: 02/02/20 02:03 Dose: 100 ml Ketorolac Tromethamine (Toradol) 30 mg IVPUSH ONETIME ONE Stop: 02/02/20 17:28 Last Admin: 02/02/20 17:35 Dose: 30 mg Magnesium Citrate (Citrate Of Magnesia) 0 ml PO ONETIME ONE Stop: 02/04/20 09:16 Last Admin: 02/04/20 09:44 Dose: 296 ml Meperidine HCl (Demerol) 25 mg IVPUSH ONETIME ONE Stop: 02/02/20 12:10 Last Admin: 02/02/20 12:35 Dose: 25 mg Midazolam HCl (Versed 1 Mg/Ml) Confirm Administered Dose 2 mg .ROUTE .STK-MED ONE Stop: 02/02/20 12:50 Last Admin: 02/02/20 18:56 Dose: Not Given Morphine Sulfate (Morphine) 4 mg IVPUSH ONETIME ONE Stop: 02/02/20 00:40 Last Admin: 02/02/20 02:36 Dose: Not Given Ondansetron HCl (Zofran) 4 mg IVPUSH ONETIME ONE Stop: 02/02/20 00:40 Last Admin: 02/02/20 02:37 Dose: Not Given Ondansetron HCl (Zofran Odt) 4 mg PO ONETIME ONE Stop: 02/02/20 00:45 Last Admin: 02/02/20 01:03 Dose: 4 mg Pantoprazole Sodium (Protonix Iv) 80 mg IVPUSH .BOLUS ONE Stop: 02/02/20 00:37 Last Admin: 02/02/20 01:40 Dose: 80 mg Pantoprazole Sodium (Protonix Iv) [address] [facility] Last Admin: 02/03/20 11:21 Dose: Not Given Pantoprazole Sodium (Protonix Iv) [address] [facility] Last Admin: 02/03/20 11:29 Dose: 40 mg Polyethylene Glycol (Miralax) 17 gm PO ONETIME ONE Stop: 02/04/20 09:16 Last Admin: 02/04/20 09:44 Dose: 17 gm Potassium Chloride (Klor-Con M20) 40 meq PO ONETIME ONE Stop: 02/04/20 08:52 Last Admin: 02/04/20 09:39 Dose: 40 meq Propofol (Diprivan 20 Ml) Confirm Administered Dose 200 mg .ROUTE .STK-MED ONE Stop: 02/02/20 12:50 Last Admin: 02/02/20 18:56 Dose: Not Given Scopolamine (Transderm-Scop) 1.5 mg TRDERM Q72H ONE Stop: 02/02/20 12:44 Last Admin: 02/02/20 12:55 Dose: 1.5 mg Scopolamine (Transderm-Scop) Confirm Administered Dose 1.5 mg .ROUTE .STK-MED ONE Stop: 02/02/20 12:44 Last Admin: 02/02/20 13:48 Dose: Not Given Sucralfate (Carafate) 1 gm PO ONETIME ONE Stop: 02/02/20 00:41 Last Admin: 02/02/20 01:03 Dose: 1 gm - Exam Quality Assessment: Reports: DVT Prophylaxis. Denies: Supplemental Oxygen, Urine Catheter, Skin Breakdown, Restraints General: Reports: Alert, Oriented, Cooperative, No Acute Distress HEENT: Reports: Pupils Equal, Pupils Reactive, EOMI, Mucous Membr. Moist/[place]. Denies: Scleral Icterus Neck: Reports: Supple, No JVD, No Thyromegaly, +2 Carotid Pulse wo Bruit. Denies: Lymphadenopathy Lungs: Reports: Clear to Auscultation, Normal Respiratory Effort. Denies: Rales , Rhonchi, Rub, Wheezing Cardiovascular: Reports: Regular Rate, Regular Rhythm, No Murmurs. Denies: Gallops, Rubs GI/Abdominal Exam: Soft, Non-Tender, No Organomegaly, No Distention, No Abnormal Bruit, No Mass, Abnormal Bowel Sounds (Persistent somewhat diffuse increased bowel sounds but not high-pitched in nature), Other (Abdominal incisions improved as below). No: Guarding, Rebound (Male) Exam: Deferred Rectal (Males) Exam: Deferred Back Exam: Reports: Normal Inspection, Full Range of Motion. Denies: CVA Tenderness (L), CVA Tenderness (R), Muscle Spasm Extremities: Normal Inspection, Normal Range of Motion, Non-Tender, No Pedal Edema, Normal Capillary Refill. No: Jw's Sign Skin: Reports: Ecchymosis (Postoperative improving) Wound/Incisions: Reports: Healing Well, Dressing Dry and Intact, No Drainage Neurological: Reports: No New Focal Deficit Psy/Mental Status: Reports: Alert, Normal Affect, Normal Mood. Denies: Anxious , Depressed, Agitated, Hallucinations, Withdrawal Symptoms Discharge Operative/Procedures - Procedures Performed Operations: Laparoscopic cholecystectomy Intubation Indication: Airway Protection, Other (Operative) Operations/Procedure Comment: As above. See surgical report.
--- NOTE | 2020-02-05 10:22 | PCM.SN.2 ---
- Free Text/Narrative Note: Addition of laboratories and microscopic test results from the entire hospitalization to recent discharge summary from 02/05/20: Laboratory Tests 02/01/20 02/01/20 02/01/20 Range/Units 23:22 23:22 23:22 WBC 9.7 (4.0-10.2) K/uL RBC 4.92 (4.33-5.41) M/uL Hgb 14.5 (13.1-16.8) g/dL Hct 43.5 (39.0-49.0) % MCV 88.4 (84.0-98.0) fL MCH 29.5 (28.2-33.3) pg MCHC 33.3 (31.7-36.0) g/dL RDW 13.2 (11.2-14.1) % Plt Count 286 (150-350) K/uL Neut % (Auto) 63.5 (45.0-80.0) % Lymph % (Auto) 25.4 (10.0-50.0) % [place] % (Auto) 9.1 (2.0-14.0) % Eos % (Auto) 1.7 (0.0-5.0) % Baso % (Auto) 0.3 (0.0-2.0) % Neut # (Auto) 6.17 (1.40-7.00) K/uL Lymph # (Auto) 2.47 (0.50-3.50) K/uL [place] # (Auto) 0.88 (0.00-1.00) K/uL Eos # (Auto) 0.17 (0.00-0.50) K/uL Baso # (Auto) 0.03 (0.00-0.20) K/uL PT (9.5-12.0) SEC INR APTT (24.5-32.8) SEC Sodium 140 (136-145) mmol/L Potassium 3.9 (3.5-5.1) mmol/L Chloride 102 (98-107) mmol/L Carbon Dioxide 29.7 (21.0-32.0) mmol/L BUN 11 (7-18) mg/dL Creatinine 0.92 (0.51-1.17) mg/dL Est Cr Clr Drug Dosing 88.80 mL/min Estimated GFR (MDRD) > 60 mL/min Glucose 103 (74-106) mg/dL Lactic Acid 1.1 (0.4-2.0) mmol/L Calcium 8.6 (8.5-10.1) mg/dL Magnesium (1.8-2.4) mg/dL Total Bilirubin 0.2 (0.2-1.0) mg/dL AST 19 (15-37) U/L ALT 40 (12-78) U/L Alkaline Phosphatase 77 (46-116) IU/L Creatine Kinase (26-308) U/L Creatine Kinase Index (0.0-2.5) % CK-MB (CK-2) (0.00-3.60) ng/mL Troponin I (0.000-0.056) ng/mL NT-Pro-B Natriuret Pep (0-125) pg/mL Total Protein 7.8 (6.4-8.2) g/dL Albumin 3.9 (3.4-5.0) g/dL Amylase 51 (25-115) U/L Lipase 150 (73-393) U/L Specimen Type Urine Color Urine Appearance Urine pH (5.0-9.0) Ur Specific [place] (1.005-1.030) Urine Protein (NEGATIVE) mg/dL Urine Glucose (UA) (NEGATIVE) mg/dL Urine Ketones (NEGATIVE) mg/dL Urine Occult Blood (NEGATIVE) Urine Nitrite (NEGATIVE) Urine Bilirubin (NEGATIVE) Urine Urobilinogen (0.2-1.0) E.U./dL Ur Leukocyte Esterase (NEGATIVE) Urine RBC /HPF Urine WBC /HPF Ur Epithelial Cells /LPF Amorphous Sediment (0/HPF) /HPF Urine Bacteria (NONE TO FEW) /HPF 02/01/20 02/01/20 02/02/20 Range/Units 23:25 23:33 10:50 WBC 9.7 (4.0-10.2) K/uL RBC 4.43 (4.33-5.41) M/uL Hgb 13.1 (13.1-16.8) g/dL Hct 39.4 (39.0-49.0) % MCV 88.9 (84.0-98.0) fL MCH 29.6 (28.2-33.3) pg MCHC 33.2 (31.7-36.0) g/dL RDW 13.2 (11.2-14.1) % Plt Count 259 (150-350) K/uL Neut % (Auto) 77.4 (45.0-80.0) % Lymph % (Auto) 14.2 (10.0-50.0) % [place] % (Auto) 8.0 (2.0-14.0) % Eos % (Auto) 0.2 (0.0-5.0) % Baso % (Auto) 0.2 (0.0-2.0) % Neut # (Auto) 7.49 H (1.40-7.00) K/uL Lymph # (Auto) 1.38 (0.50-3.50) K/uL [place] # (Auto) 0.78 (0.00-1.00) K/uL Eos # (Auto) 0.02 (0.00-0.50) K/uL Baso # (Auto) 0.02 (0.00-0.20) K/uL PT (9.5-12.0) SEC INR APTT (24.5-32.8) SEC Sodium (136-145) mmol/L Potassium (3.5-5.1) mmol/L Chloride (98-107) mmol/L Carbon Dioxide (21.0-32.0) mmol/L BUN (7-18) mg/dL Creatinine (0.51-1.17) mg/dL Est Cr Clr Drug Dosing mL/min Estimated GFR (MDRD) mL/min Glucose (74-106) mg/dL Lactic Acid (0.4-2.0) mmol/L Calcium (8.5-10.1) mg/dL Magnesium (1.8-2.4) mg/dL Total Bilirubin (0.2-1.0) mg/dL AST (15-37) U/L ALT (12-78) U/L Alkaline Phosphatase (46-116) IU/L Creatine Kinase 61 (26-308) U/L Creatine Kinase Index 0.7 (0.0-2.5) % CK-MB (CK-2) 0.40 (0.00-3.60) ng/mL Troponin I 0.000 (0.000-0.056) ng/mL NT-Pro-B Natriuret Pep (0-125) pg/mL Total Protein (6.4-8.2) g/dL Albumin (3.4-5.0) g/dL Amylase (25-115) U/L Lipase (73-393) U/L Specimen Type Urinvoid Urine Color Yellow Urine Appearance Cloudy Urine pH 8.5 (5.0-9.0) Ur Specific [place] 1.020 (1.005-1.030) Urine Protein Negative (NEGATIVE) mg/dL Urine Glucose (UA) Negative (NEGATIVE) mg/dL Urine Ketones Negative (NEGATIVE) mg/dL Urine Occult Blood Negative (NEGATIVE) Urine Nitrite Negative (NEGATIVE) Urine Bilirubin Negative (NEGATIVE) Urine Urobilinogen 0.2 (0.2-1.0) E.U./dL Ur Leukocyte Esterase Negative (NEGATIVE) Urine RBC Not seen /HPF Urine WBC Not seen /HPF Ur Epithelial Cells Not seen /LPF Amorphous Sediment Many H (0/HPF) /HPF Urine Bacteria Few (NONE TO FEW) /HPF 02/02/20 02/02/20 02/03/20 Range/Units 10:50 10:50 07:35 WBC 10.4 H (4.0-10.2) K/uL RBC 4.04 L (4.33-5.41) M/uL Hgb 12.0 L (13.1-16.8) g/dL Hct 36.6 L (39.0-49.0) % MCV 90.6 (84.0-98.0) fL MCH 29.7 (28.2-33.3) pg MCHC 32.8 (31.7-36.0) g/dL RDW 13.6 (11.2-14.1) % Plt Count 238 (150-350) K/uL Neut % (Auto) 74.7 (45.0-80.0) % Lymph % (Auto) 15.4 (10.0-50.0) % [place] % (Auto) 9.8 (2.0-14.0) % Eos % (Auto) 0.0 (0.0-5.0) % Baso % (Auto) 0.1 (0.0-2.0) % Neut # (Auto) 7.79 H (1.40-7.00) K/uL Lymph # (Auto) 1.60 (0.50-3.50) K/uL [place] # (Auto) 1.02 H (0.00-1.00) K/uL Eos # (Auto) 0.00 (0.00-0.50) K/uL Baso # (Auto) 0.01 (0.00-0.20) K/uL PT (9.5-12.0) SEC INR APTT (24.5-32.8) SEC Sodium 140 (136-145) mmol/L Potassium 4.1 (3.5-5.1) mmol/L Chloride 105 (98-107) mmol/L Carbon Dioxide 24.7 (21.0-32.0) mmol/L BUN 11 (7-18) mg/dL Creatinine 0.87 (0.51-1.17) mg/dL Est Cr Clr Drug Dosing 93.91 mL/min Estimated GFR (MDRD) > 60 mL/min Glucose 114 H (74-106) mg/dL Lactic Acid 1.5 (0.4-2.0) mmol/L Calcium 8.1 L (8.5-10.1) mg/dL Magnesium (1.8-2.4) mg/dL Total Bilirubin 0.5 (0.2-1.0) mg/dL AST 15 (15-37) U/L ALT 33 (12-78) U/L Alkaline Phosphatase 63 (46-116) IU/L Creatine Kinase (26-308) U/L Creatine Kinase Index (0.0-2.5) % CK-MB (CK-2) (0.00-3.60) ng/mL Troponin I (0.000-0.056) ng/mL NT-Pro-B Natriuret Pep (0-125) pg/mL Total Protein 6.8 (6.4-8.2) g/dL Albumin 3.5 (3.4-5.0) g/dL Amylase 43 (25-115) U/L Lipase 97 (73-393) U/L Specimen Type Urine Color Urine Appearance Urine pH (5.0-9.0) Ur Specific [place] (1.005-1.030) Urine Protein (NEGATIVE) mg/dL Urine Glucose (UA) (NEGATIVE) mg/dL Urine Ketones (NEGATIVE) mg/dL Urine Occult Blood (NEGATIVE) Urine Nitrite (NEGATIVE) Urine Bilirubin (NEGATIVE) Urine Urobilinogen (0.2-1.0) E.U./dL Ur Leukocyte Esterase (NEGATIVE) Urine RBC /HPF Urine WBC /HPF Ur Epithelial Cells /LPF Amorphous Sediment (0/HPF) /HPF Urine Bacteria (NONE TO FEW) /HPF 02/03/20 02/04/20 02/04/20 Range/Units 07:35 07:30 07:30 WBC 9.9 (4.0-10.2) K/uL RBC 3.66 L (4.33-5.41) M/uL Hgb 10.9 L (13.1-16.8) g/dL Hct 33.5 L (39.0-49.0) % MCV 91.5 (84.0-98.0) fL MCH 29.8 (28.2-33.3) pg MCHC 32.5 (31.7-36.0) g/dL RDW 13.6 (11.2-14.1) % Plt Count 215 (150-350) K/uL Neut % (Auto) 72.9 (45.0-80.0) % Lymph % (Auto) 14.3 (10.0-50.0) % [place] % (Auto) 12.0 (2.0-14.0) % Eos % (Auto) 0.6 (0.0-5.0) % Baso % (Auto) 0.2 (0.0-2.0) % Neut # (Auto) 7.19 H (1.40-7.00) K/uL Lymph # (Auto) 1.41 (0.50-3.50) K/uL [place] # (Auto) 1.18 H (0.00-1.00) K/uL Eos # (Auto) 0.06 (0.00-0.50) K/uL Baso # (Auto) 0.02 (0.00-0.20) K/uL PT 10.3 (9.5-12.0) SEC INR 1.0 APTT 29.9 (24.5-32.8) SEC Sodium 140 (136-145) mmol/L Potassium 3.8 (3.5-5.1) mmol/L Chloride 107 (98-107) mmol/L Carbon Dioxide 25.7 (21.0-32.0) mmol/L BUN 12 (7-18) mg/dL Creatinine 1.07 (0.51-1.17) mg/dL Est Cr Clr Drug Dosing 76.36 mL/min Estimated GFR (MDRD) > 60 mL/min Glucose 104 (74-106) mg/dL Lactic Acid (0.4-2.0) mmol/L Calcium 7.3 L (8.5-10.1) mg/dL Magnesium (1.8-2.4) mg/dL Total Bilirubin 0.8 (0.2-1.0) mg/dL AST 30 (15-37) U/L ALT 44 (12-78) U/L Alkaline Phosphatase 47 (46-116) IU/L Creatine Kinase (26-308) U/L Creatine Kinase Index (0.0-2.5) % CK-MB (CK-2) (0.00-3.60) ng/mL Troponin I (0.000-0.056) ng/mL NT-Pro-B Natriuret Pep (0-125) pg/mL Total Protein 6.0 L (6.4-8.2) g/dL Albumin 3.0 L (3.4-5.0) g/dL Amylase (25-115) U/L Lipase (73-393) U/L Specimen Type Urine Color Urine Appearance Urine pH (5.0-9.0) Ur Specific [place] (1.005-1.030) Urine Protein (NEGATIVE) mg/dL Urine Glucose (UA) (NEGATIVE) mg/dL Urine Ketones (NEGATIVE) mg/dL Urine Occult Blood (NEGATIVE) Urine Nitrite (NEGATIVE) Urine Bilirubin (NEGATIVE) Urine Urobilinogen (0.2-1.0) E.U./dL Ur Leukocyte Esterase (NEGATIVE) Urine RBC /HPF Urine WBC /HPF Ur Epithelial Cells /LPF Amorphous Sediment (0/HPF) /HPF Urine Bacteria (NONE TO FEW) /HPF 02/04/20 02/04/20 02/05/20 Range/Units 07:30 07:30 07:15 WBC 8.2 (4.0-10.2) K/uL RBC 4.03 L (4.33-5.41) M/uL Hgb 11.9 L (13.1-16.8) g/dL Hct 36.1 L (39.0-49.0) % MCV 89.6 (84.0-98.0) fL MCH 29.5 (28.2-33.3) pg MCHC 33.0 (31.7-36.0) g/dL RDW 13.1 (11.2-14.1) % Plt Count 243 (150-350) K/uL Neut % (Auto) 62.9 (45.0-80.0) % Lymph % (Auto) 21.8 (10.0-50.0) % [place] % (Auto) 12.8 (2.0-14.0) % Eos % (Auto) 2.1 (0.0-5.0) % Baso % (Auto) 0.4 (0.0-2.0) % Neut # (Auto) 5.13 (1.40-7.00) K/uL Lymph # (Auto) 1.78 (0.50-3.50) K/uL [place] # (Auto) 1.04 H (0.00-1.00) K/uL Eos # (Auto) 0.17 (0.00-0.50) K/uL Baso # (Auto) 0.03 (0.00-0.20) K/uL PT (9.5-12.0) SEC INR APTT (24.5-32.8) SEC Sodium 139 (136-145) mmol/L Potassium 3.9 (3.5-5.1) mmol/L Chloride 106 (98-107) mmol/L Carbon Dioxide 26.2 (21.0-32.0) mmol/L BUN 13 (7-18) mg/dL Creatinine 0.90 (0.51-1.17) mg/dL Est Cr Clr Drug Dosing 90.78 mL/min Estimated GFR (MDRD) > 60 mL/min Glucose 94 (74-106) mg/dL Lactic Acid (0.4-2.0) mmol/L Calcium 7.7 L (8.5-10.1) mg/dL Magnesium 1.9 (1.8-2.4) mg/dL Total Bilirubin 0.4 (0.2-1.0) mg/dL AST 27 (15-37) U/L ALT 32 (12-78) U/L Alkaline Phosphatase 49 (46-116) IU/L Creatine Kinase (26-308) U/L Creatine Kinase Index (0.0-2.5) % CK-MB (CK-2) (0.00-3.60) ng/mL Troponin I (0.000-0.056) ng/mL NT-Pro-B Natriuret Pep 754 H (0-125) pg/mL Total Protein 5.8 L (6.4-8.2) g/dL Albumin 2.7 L (3.4-5.0) g/dL Amylase 25 (25-115) U/L Lipase 54 L (73-393) U/L Specimen Type Urine Color Urine Appearance Urine pH (5.0-9.0) Ur Specific [place] (1.005-1.030) Urine Protein (NEGATIVE) mg/dL Urine Glucose (UA) (NEGATIVE) mg/dL Urine Ketones (NEGATIVE) mg/dL Urine Occult Blood (NEGATIVE) Urine Nitrite (NEGATIVE) Urine Bilirubin (NEGATIVE) Urine Urobilinogen (0.2-1.0) E.U./dL Ur Leukocyte Esterase (NEGATIVE) Urine RBC /HPF Urine WBC /HPF Ur Epithelial Cells /LPF Amorphous Sediment (0/HPF) /HPF Urine Bacteria (NONE TO FEW) /HPF 02/05/20 Range/Units 07:15 WBC (4.0-10.2) K/uL RBC (4.33-5.41) M/uL Hgb (13.1-16.8) g/dL Hct (39.0-49.0) % MCV (84.0-98.0) fL MCH (28.2-33.3) pg MCHC (31.7-36.0) g/dL RDW (11.2-14.1) % Plt Count (150-350) K/uL Neut % (Auto) (45.0-80.0) % Lymph % (Auto) (10.0-50.0) % [place] % (Auto) (2.0-14.0) % Eos % (Auto) (0.0-5.0) % Baso % (Auto) (0.0-2.0) % Neut # (Auto) (1.40-7.00) K/uL Lymph # (Auto) (0.50-3.50) K/uL [place] # (Auto) (0.00-1.00) K/uL Eos # (Auto) (0.00-0.50) K/uL Baso # (Auto) (0.00-0.20) K/uL PT (9.5-12.0) SEC INR APTT (24.5-32.8) SEC Sodium 140 (136-145) mmol/L Potassium 3.6 (3.5-5.1) mmol/L Chloride 103 (98-107) mmol/L Carbon Dioxide 26.9 (21.0-32.0) mmol/L BUN 14 (7-18) mg/dL Creatinine 0.93 (0.51-1.17) mg/dL Est Cr Clr Drug Dosing 87.85 mL/min Estimated GFR (MDRD) > 60 mL/min Glucose 100 (74-106) mg/dL Lactic Acid (0.4-2.0) mmol/L Calcium 8.2 L (8.5-10.1) mg/dL Magnesium (1.8-2.4) mg/dL Total Bilirubin (0.2-1.0) mg/dL AST (15-37) U/L ALT (12-78) U/L Alkaline Phosphatase (46-116) IU/L Creatine Kinase (26-308) U/L Creatine Kinase Index (0.0-2.5) % CK-MB (CK-2) (0.00-3.60) ng/mL Troponin I (0.000-0.056) ng/mL NT-Pro-B Natriuret Pep 459 H (0-125) pg/mL Total Protein (6.4-8.2) g/dL Albumin (3.4-5.0) g/dL Amylase (25-115) U/L Lipase (73-393) U/L Specimen Type Urine Color Urine Appearance Urine pH (5.0-9.0) Ur Specific [place] (1.005-1.030) Urine Protein (NEGATIVE) mg/dL Urine Glucose (UA) (NEGATIVE) mg/dL Urine Ketones (NEGATIVE) mg/dL Urine Occult Blood (NEGATIVE) Urine Nitrite (NEGATIVE) Urine Bilirubin (NEGATIVE) Urine Urobilinogen (0.2-1.0) E.U./dL Ur Leukocyte Esterase (NEGATIVE) Urine RBC /HPF Urine WBC /HPF Ur Epithelial Cells /LPF Amorphous Sediment (0/HPF) /HPF Urine Bacteria (NONE TO FEW) /HPF Microbiology 02/04/20 10:27 Stool / Feces Stool Occult Blood (KEITH) - Final NEGATIVE OCCULT BLOOD REFERENCE RANGE: NEGATIVE
== END 2020-02-05 11:15 | disposition home or self-care (01) | DRG 418 ==
LOC: LL.ED 23:14 → LL.MS 02-02 00:29 → UNDOADMOB 02-02 00:29 → LL.MS 02-02 00:33 → OBSVTOIN 02-04 09:00
PROVIDERS: ADMIT Emergency Medicine; ATTEND Emergency Medicine
PROC: 0FT44ZZ Resection of Gallbladder, Percutaneous Endoscopic Approach (ICD-10-PCS; principal; 2020-02-02)
DX: K80.00 Calculus of gallbladder with acute cholecystitis without obstruction (principal); K56.7 Ileus, unspecified; R50.82 Postprocedural fever; D64.89 Other specified anemias; K21.0 Gastro-esophageal reflux disease with esophagitis; K44.9 Diaphragmatic hernia without obstruction or gangrene; E88.09 Other disorders of plasma-protein metabolism, not elsewhere classified; E83.51 Hypocalcemia; Z79.899 Other long term (current) drug therapy; Z87.891 Personal history of nicotine dependence
CPT/HCPCS: 36415; 74022; 74177; 80048; 80053; 81001; 82150; 82272; 82550; 82553; 83605; 83690; 83735; 83880; 84484; 85025; 85610; 85730; 87338; 93005; 94761; 96361; 96365; 96366; 96367; 96372; 96375; 96376; 99285-25; A9270-GY; C9113; G0378; J0690; J0696; J1170; J1885; J1940; J2175; J2405; J2543; J3490; J7030; J7050; J7120; Q9967

== ENCOUNTER 2022-04-09 12:20 | Day surgery (SDC) | payer OTHER ==
[~2022-04-09 12:20] MED LIST: Lactated Ringers 1,000 ML IV SCH; Midazolam 1 MG/ML 2 ML SDV ONE; Propofol 200 MG/20 ML SDV ONE; Sodium Chloride 0.9% 10 ML Syringe FLUSH PRN
[2022-04-09] MEDS ORDERED: Scopolamine 1.5 MG Transdermal Patch ONE (13:22)
[2022-04-09] MEDS ORDERED: Lidocaine 2% 5 ML SDV ONE (13:30)
[2022-04-09] MEDS ORDERED: Dexamethasone 10 MG/ML SDV IVPUSH ONE (13:30)
[2022-04-09] MEDS ORDERED: Ondansetron 4 MG/2 ML SDV IVPUSH ONE (13:30)
== END 2022-04-09 16:05 | disposition home or self-care (01) ==
LOC: LL.SDS 12:20
PROVIDERS: ATTEND Surgery
DX: Z12.11 Encounter for screening for malignant neoplasm of colon (principal); K64.8 Other hemorrhoids; K31.7 Polyp of stomach and duodenum; K20.90 Esophagitis, unspecified without bleeding; K22.89 Other specified disease of esophagus; R68.82 Decreased libido; G47.33 Obstructive sleep apnea (adult) (pediatric); K22.70 Barrett's esophagus without dysplasia; Z79.899 Other long term (current) drug therapy; Z90.49 Acquired absence of other specified parts of digestive tract; Z87.19 Personal history of other diseases of the digestive system; Z86.010 Personal history of colon polyps
CPT/HCPCS: 00813; A9270-GY; J1100; J2250; J2405; J2704